=== PATIENT | male | born 1970 | race Caucasian/White ===

== ENCOUNTER → 2017-03-03 | Outpatient (CLI) | payer BC ==
[~2017-03-03] MED LIST: *BLDWK1; *BLW9; AMBIEN10 PO; AMO500; AMO500 PO; AMOXIL500 PO; AUGXR10 PO; BABY81CH; BUSP15TA; BUSPAR10 PO; BUSPAR15 PO; CIPRO500 PO; CITA20TA4 PO; DEPAKOT500; DOXYCYC100 PO; DRISDOL50 PO; FLONASESPR NASAL; KLONOPIN PO; KLONOPIN05 PO; MOTRIN800 PO; RHINOAEROS 2 SPRAYS; TEMOVATEOI TOPICAL; THERGRAN; TOPAMAX100; TOPAMAX100 PO; TOPAMAX200 PO; TOPI100T; TOPI200T; TOPI200T PO; TRAZ10TA PO; TRIAMCIN; TRIAMCINOLONE 0.5% TOP; TUSSIONEX PO; VICODIN PO; XANAX0.25 PO; XANAX0.5 PO; [UNRECOGNIZED DRUG - CODE] TOPICAL; [UNRECOGNIZED DRUG - OTHER] TOP; [UNRECOGNIZED DRUG - OTHER] TOPICAL
[2017-03-03 14:24] LABS: BASO % 0.7 % (0.0-1.0); EOS # 0.4 10^3/uL (0.0-0.50); EOS % 6.5 % (0.0-3.0); IMMATURE GRANULOCYTE % 0.9 % (0-0); LYMPH # 0.9 10^3/uL (1.5-4.5); LYMPH % 16.5 % (24.0-44.0); MEAN CORPUSCULAR HEMOGLOBIN 30.6 pg (27.0-33.0); MEAN CORPUSCULAR HGB CONC 33.1 g/dl (32.0-36.5); MEAN CORPUSCULAR VOLUME 92.4 fl (80.0-96.0); MONO # 0.5 10^3/uL (0.0-0.8); MONO % 9.7 % (0.0-5.0); NEUTROPHILS # 3.7 10^3/uL (1.8-7.7); NEUTROPHILS % 65.7 % (36.0-66.0); PLATELET COUNT, AUTOMATED 110 10^3/uL (150-450); WHITE BLOOD COUNT 5.6 10^3/uL (4.0-10.0)
[2017-03-03 15:50] LABS: ALBUMIN 3.8 GM/DL (3.2-5.2); ALBUMIN/GLOBULIN RATIO 1.31 (1.00-1.93); ALKALINE PHOSPHATASE 67 U/L (45-117); ALT/SGPT 32 U/L (12-78); ANION GAP 4 MEQ/L (8-16); AST/SGOT 13 U/L (15-37); BILIRUBIN,TOTAL 0.4 MG/DL (0.2-1.0); BLOOD UREA NITROGEN 20 MG/DL (7-18); CALCIUM LEVEL 8.2 MG/DL (8.5-10.1); CARBON DIOXIDE LEVEL 24 MEQ/L (21-32); CHLORIDE LEVEL 115 MEQ/L (98-107); CHOLESTEROL LEVEL 90 MG/DL (<200); CREATININE FOR GFR 1.18 MG/DL (0.70-1.30); FREE T4 0.81 NG/DL (0.76-1.46); GLOMERULAR FILTRATION RATE > 60.0 (>60); GLUCOSE, FASTING 87 MG/DL (70-105); POTASSIUM SERUM 4.6 MEQ/L (3.5-5.1); SODIUM LEVEL 143 MEQ/L (136-145); TOTAL PROTEIN 6.7 GM/DL (6.4-8.2); TRIGLYCERIDES LEVEL 77 MG/DL (<150)
== END ==
LOC: M WUC 09:35
PROVIDERS: ATTEND Nurse Practitioner Adult Health
DX: Z79.899 Other long term (current) drug therapy (principal); G40.909 Epilepsy, unspecified, not intractable, without status epilepticus; R19.5 Other fecal abnormalities; R60.0 Localized edema; L40.9 Psoriasis, unspecified; M25.571 Pain in right ankle and joints of right foot; E55.9 Vitamin D deficiency, unspecified

== ENCOUNTER 2017-08-02 18:27 | Inpatient (IN) | payer BC, OTHER ==
[2017-08-02] MEDS: ONDANSETRON 4MG/2ML VIAL (J2405) IV (19:40)
[2017-08-02] MEDS: MORPHINE 4 MG/ML 1ML VIAL (J2270) IV ×2 (19:41→23:37)
[2017-08-02] MEDS: PIPERACILLIN/TAZOBACTAM SOD 3.375 GM in APPROPRIATE DILUENT 1 EA IV (19:51)
[2017-08-02] MEDS: NS 2,000 ML IV (19:51)
[2017-08-02] MEDS: ACETAMINOPHEN 650 MG SUPP PR (19:51)
[2017-08-02 19:52] LABS: BASO # 0.1 10^3/uL (0.0-0.2); BASO % 0.4 % (0.0-1.0); EOS # 0.1 10^3/uL (0.0-0.50); EOS % 0.3 % (0.0-3.0); HEMATOCRIT 43.5 % (42.0-52.0); HEMOGLOBIN 14.7 g/dl (14.0-18.0); IMMATURE GRANULOCYTE % 0.6 % (0-3.0); LYMPH # 0.5 10^3/uL (1.5-4.5); LYMPH % 2.7 % (24.0-44.0); MEAN CORPUSCULAR HEMOGLOBIN 31.2 pg (27.0-33.0); MEAN CORPUSCULAR HGB CONC 33.8 g/dl (32.0-36.5); MEAN CORPUSCULAR VOLUME 92.4 fl (80.0-96.0); MONO # 1.1 10^3/uL (0.0-0.8); MONO % 6.5 % (0.0-5.0); NEUTROPHILS # 15.1 10^3/uL (1.8-7.7); NEUTROPHILS % 89.5 % (36.0-66.0); PLATELET COUNT, AUTOMATED 137 10^3/uL (150-450); RED BLOOD COUNT 4.71 10^6/uL (4.30-6.10); WHITE BLOOD COUNT 16.8 10^3/uL (4.0-10.0)
[2017-08-02 19:55] LABS: KETONE, URINE AUTO RFX TRACE mg/dL (NEGATIVE); LEUKOCYTE ESTERASE UR AUTO RFX NEGATIVE (NEGATIVE); MUCUS, URINE RFX SMALL (NEGATIVE); NITRITE, URINE AUTO RFX NEGATIVE (NEGATIVE); RBC, URINE AUTO RFX 3 /HPF (0-3); SPECIFIC GRAVITY UR AUTO RFX 1.013 (1.002-1.035); SQUAM EPITHELIAL CELL UR AURFX 0 /HPF (0-6); WBC, URINE AUTO RFX 5 /HPF (0-3)
[2017-08-02 20:24] LABS: ALBUMIN 4.2 GM/DL (3.2-5.2); ALBUMIN/GLOBULIN RATIO 1.27 (1.00-1.93); ALKALINE PHOSPHATASE 78 U/L (45-117); ALT/SGPT 31 U/L (12-78); AMYLASE 38 U/L (25-115); ANION GAP 12 MEQ/L (8-16); AST/SGOT 18 U/L (7-37); BILIRUBIN,DIRECT 0.3 MG/DL (0.0-0.2); BILIRUBIN,TOTAL 0.8 MG/DL (0.2-1.0); BLOOD UREA NITROGEN 24 MG/DL (7-18); CALCIUM LEVEL 8.4 MG/DL (8.5-10.1); CARBON DIOXIDE LEVEL 20 MEQ/L (21-32); CHLORIDE LEVEL 110 MEQ/L (98-107); CREATININE FOR GFR 2.05 MG/DL (0.70-1.30); GLOMERULAR FILTRATION RATE 37.1 (>60); GLUCOSE, FASTING 96 MG/DL (70-100); LIPASE 250 U/L (73-393); POTASSIUM SERUM 3.7 MEQ/L (3.5-5.1); SODIUM LEVEL 142 MEQ/L (136-145); TOTAL PROTEIN 7.5 GM/DL (6.4-8.2)
[2017-08-02 20:26] LABS: LACTIC ACID SEPSIS PROTOCOL 1.2 MMOL/L (0.4-2.0)
[2017-08-02] MEDS ORDERED: metroNIDAZOLE 500 MG in APPROPRIATE DILUENT 1 EA IV (23:00)
[2017-08-02] MEDS ORDERED: ONDANSETRON 4MG/2ML VIAL (J2405) IV (23:00)
[2017-08-02 23:18] LABS: C REACTIVE PROTEIN QUANTITATIV 6.05 MG/DL (0.00-0.30)
[2017-08-02] MEDS: CIPROFLOXACIN 400 MG in APPROPRIATE DILUENT 1 EA IV (23:18)
[2017-08-02] MEDS: PANTOPRAZOLE 40MG INJ (PROTONIX) (C9113) IV (23:35)
[2017-08-02] MEDS: LACTOBACILLUS ACIDOPHILUS CAP (BACID) PO (23:36)
[2017-08-02] MEDS: TOPIRAMATE (TopAMAX) 100 MG TAB PO (23:36)
[2017-08-03] MEDS: LR 1,000 ML IV ×4 (01:07→18:45)
[2017-08-03] MEDS: metroNIDAZOLE 500 MG in APPROPRIATE DILUENT 1 EA IV ×3 (03:00→18:43)
[2017-08-03 03:16] LABS: OSMOLALITY URINE 530 MOSM/KG (500-800)
[2017-08-03 03:20] LABS: CHLORIDE,RANDOM URINE 85 MEQ/L; POTASSIUM RANDOM URINE 37.3 MEQ/L; SODIUM,RANDOM URINE 73 MEQ/L; TOTAL PROTEIN,RANDOM URINE 28.3 MG/DL (0.0-12.0)
[2017-08-03] MEDS: HEPARIN SOD (PORCINE) 5000 UNITS/ML VIAL SC ×3 (06:21→20:22)
[2017-08-03] MEDS: MORPHINE 4 MG/ML 1ML VIAL (J2270) IV (06:22)
[2017-08-03 06:34] LABS: HEMATOCRIT 36.8 % (42.0-52.0); MEAN CORPUSCULAR HEMOGLOBIN 31.2 pg (27.0-33.0); MEAN CORPUSCULAR HGB CONC 33.7 g/dl (32.0-36.5); MEAN CORPUSCULAR VOLUME 92.5 fl (80.0-96.0); PLATELET COUNT, AUTOMATED 118 10^3/uL (150-450); RED BLOOD COUNT 3.98 10^6/uL (4.30-6.10); RED CELL DISTRIBUTION WIDTH 12.3 % (11.5-14.5); WHITE BLOOD COUNT 11.7 10^3/uL (4.0-10.0)
[2017-08-03 06:36] LABS: HEMOGLOBIN 12.4 g/dl (14.0-18.0)
[2017-08-03 06:51] LABS: ALBUMIN 3.1 GM/DL (3.2-5.2); ALBUMIN/GLOBULIN RATIO 0.94 (1.00-1.93); ALKALINE PHOSPHATASE 59 U/L (45-117); ALT/SGPT 25 U/L (12-78); ANION GAP 7 MEQ/L (8-16); AST/SGOT 12 U/L (7-37); BILIRUBIN,TOTAL 1.1 MG/DL (0.2-1.0); BLOOD UREA NITROGEN 21 MG/DL (7-18); CALCIUM LEVEL 7.9 MG/DL (8.5-10.1); CARBON DIOXIDE LEVEL 20 MEQ/L (21-32); CHLORIDE LEVEL 115 MEQ/L (98-107); GLOMERULAR FILTRATION RATE 43.1 (>60); GLUCOSE, FASTING 103 MG/DL (70-100); MAGNESIUM LEVEL 1.7 MG/DL (1.8-2.4); POTASSIUM SERUM 3.5 MEQ/L (3.5-5.1); SODIUM LEVEL 142 MEQ/L (136-145); TOTAL PROTEIN 6.4 GM/DL (6.4-8.2)
[2017-08-03 06:53] LABS: LACTIC ACID SEPSIS PROTOCOL 0.9 MMOL/L (0.4-2.0)
[2017-08-03] MEDS: MULTIVITAMINS/MINERALS THERAP 1 TAB PO (07:29)
[2017-08-03] MEDS: MAG SULF 1GM/100ML (MAG RUN) 1 GM in APPROPRIATE DILUENT 1 EA IV (07:54)
[2017-08-03] MEDS: LACTOBACILLUS ACIDOPHILUS CAP (BACID) PO ×3 (07:54→20:21)
[2017-08-03] MEDS: TOPIRAMATE (TopAMAX) 100 MG TAB PO ×2 (07:55→20:21)
[2017-08-03] MEDS: ACETAMINOPHEN TAB 650MG DOSE (2X325MG) PO ×2 (07:55→18:44)
[2017-08-03] MEDS: CIPROFLOXACIN 400 MG in APPROPRIATE DILUENT 1 EA IV (13:27)
[2017-08-03] MEDS ORDERED: PERCOCET 5MG/325MG TAB PO (18:00)
[2017-08-03] MEDS: PANTOPRAZOLE 40MG INJ (PROTONIX) (C9113) IV (20:22)
[2017-08-04] MEDS: CIPROFLOXACIN 400 MG in APPROPRIATE DILUENT 1 EA IV ×2 (00:52→13:04)
[2017-08-04] MEDS: metroNIDAZOLE 500 MG in APPROPRIATE DILUENT 1 EA IV ×3 (02:16→17:19)
[2017-08-04] MEDS: LR 1,000 ML IV ×3 (04:28→15:00)
[2017-08-04] MEDS: HEPARIN SOD (PORCINE) 5000 UNITS/ML VIAL SC ×3 (06:04→20:30)
[2017-08-04 06:23] LABS: HEMATOCRIT 32.9 % (42.0-52.0); HEMOGLOBIN 11.3 g/dl (14.0-18.0); MEAN CORPUSCULAR HEMOGLOBIN 31.7 pg (27.0-33.0); MEAN CORPUSCULAR HGB CONC 34.3 g/dl (32.0-36.5); MEAN CORPUSCULAR VOLUME 92.2 fl (80.0-96.0); PLATELET COUNT, AUTOMATED 105 10^3/uL (150-450); RED BLOOD COUNT 3.57 10^6/uL (4.30-6.10); RED CELL DISTRIBUTION WIDTH 12.2 % (11.5-14.5); WHITE BLOOD COUNT 8.4 10^3/uL (4.0-10.0)
[2017-08-04 06:40] LABS: ALBUMIN 2.7 GM/DL (3.2-5.2); ALBUMIN/GLOBULIN RATIO 0.82 (1.00-1.93); ALKALINE PHOSPHATASE 47 U/L (45-117); ALT/SGPT 17 U/L (12-78); ANION GAP 6 MEQ/L (8-16); AST/SGOT 7 U/L (7-37); BILIRUBIN,TOTAL 0.4 MG/DL (0.2-1.0); BLOOD UREA NITROGEN 15 MG/DL (7-18); CALCIUM LEVEL 8.1 MG/DL (8.5-10.1); CARBON DIOXIDE LEVEL 24 MEQ/L (21-32); CHLORIDE LEVEL 114 MEQ/L (98-107); CREATININE FOR GFR 1.39 MG/DL (0.70-1.30); GLOMERULAR FILTRATION RATE 58.1 (>60); GLUCOSE, FASTING 119 MG/DL (70-100); MAGNESIUM LEVEL 2.1 MG/DL (1.8-2.4); POTASSIUM SERUM 3.4 MEQ/L (3.5-5.1); SODIUM LEVEL 144 MEQ/L (136-145)
[2017-08-04] MEDS: MULTIVITAMINS/MINERALS THERAP 1 TAB PO (09:36)
[2017-08-04] MEDS: LACTOBACILLUS ACIDOPHILUS CAP (BACID) PO ×3 (09:36→20:31)
[2017-08-04] MEDS: TOPIRAMATE (TopAMAX) 100 MG TAB PO ×2 (09:36→20:31)
[2017-08-04] MEDS: TAMSULOSIN 0.4 MG CAP PO (09:36)
[2017-08-04] MEDS: POTASSIUM CHLORIDE 10 MEQ SR TABLET PO (13:03)
[2017-08-04] MEDS: EUCERIN 120GM CREAM TOP (20:30)
[2017-08-04] MEDS: PANTOPRAZOLE 40MG INJ (PROTONIX) (C9113) IV (20:30)
[2017-08-05] MEDS: LR 1,000 ML IV ×3 (00:28→11:00)
[2017-08-05] MEDS: CIPROFLOXACIN 400 MG in APPROPRIATE DILUENT 1 EA IV ×2 (00:28→11:49)
[2017-08-05] MEDS: metroNIDAZOLE 500 MG in APPROPRIATE DILUENT 1 EA IV ×2 (02:06→10:00)
[2017-08-05] MEDS: HEPARIN SOD (PORCINE) 5000 UNITS/ML VIAL SC (05:32)
[2017-08-05 06:04] LABS: HEMATOCRIT 33.3 % (42.0-52.0); HEMOGLOBIN 11.2 g/dl (13.5-17.5); MEAN CORPUSCULAR HEMOGLOBIN 31.3 pg (27.0-33.0); MEAN CORPUSCULAR HGB CONC 33.6 g/dl (32.0-36.5); PLATELET COUNT, AUTOMATED 105 10^3/uL (150-450); RED BLOOD COUNT 3.58 10^6/uL (4.30-6.10); RED CELL DISTRIBUTION WIDTH 12.1 % (11.5-14.5); WHITE BLOOD COUNT 7.1 10^3/uL (4.0-10.0)
[2017-08-05 06:28] LABS: ALBUMIN 2.7 GM/DL (3.2-5.2); ALBUMIN/GLOBULIN RATIO 0.84 (1.00-1.93); ALKALINE PHOSPHATASE 49 U/L (45-117); ALT/SGPT 25 U/L (12-78); ANION GAP 3 MEQ/L (8-16); AST/SGOT 16 U/L (7-37); BILIRUBIN,TOTAL 0.3 MG/DL (0.2-1.0); BLOOD UREA NITROGEN 15 MG/DL (7-18); CALCIUM LEVEL 8.1 MG/DL (8.5-10.1); CARBON DIOXIDE LEVEL 23 MEQ/L (21-32); CHLORIDE LEVEL 118 MEQ/L (98-107); GLOMERULAR FILTRATION RATE > 60.0 (>60); GLUCOSE, FASTING 94 MG/DL (70-100); MAGNESIUM LEVEL 1.7 MG/DL (1.8-2.4); POTASSIUM SERUM 3.6 MEQ/L (3.5-5.1); SODIUM LEVEL 144 MEQ/L (136-145); TOTAL PROTEIN 5.9 GM/DL (6.4-8.2)
[2017-08-05] MEDS: MULTIVITAMINS/MINERALS THERAP 1 TAB PO (08:34)
[2017-08-05] MEDS: MAGNESIUM OXIDE 400 MG TAB (MAG-OX) PO (08:34)
[2017-08-05] MEDS: LACTOBACILLUS ACIDOPHILUS CAP (BACID) PO (08:34)
[2017-08-05] MEDS: TAMSULOSIN 0.4 MG CAP PO (08:34)
[2017-08-05] MEDS: TOPIRAMATE (TopAMAX) 100 MG TAB PO (08:35)
[2017-08-05] MEDS: PERCOCET 5MG/325MG TAB PO (08:36)
[2017-08-05] MEDS: EUCERIN 120GM CREAM TOP (08:36)
== END 2017-08-05 13:07 | disposition home or self-care (01) | DRG 249 ==
LOC: M MSPAV 08-03 10:57 → M ED 18:27 → M ED INP 22:56
DX: K52.9 Noninfective gastroenteritis and colitis, unspecified (principal); N17.9 Acute kidney failure, unspecified; N13.2 Hydronephrosis with renal and ureteral calculous obstruction; G40.909 Epilepsy, unspecified, not intractable, without status epilepticus; F41.9 Anxiety disorder, unspecified; F32.9 Major depressive disorder, single episode, unspecified; G47.33 Obstructive sleep apnea (adult) (pediatric); Z87.442 Personal history of urinary calculi; Z79.899 Other long term (current) drug therapy; E86.0 Dehydration; D72.829 Elevated white blood cell count, unspecified; E87.6 Hypokalemia

== ENCOUNTER 2017-11-02 12:50 | Emergency (ER) | payer OTHER, BC ==
[2017-11-02] MEDS: KETOROLAC 60 MG/2 ML VIAL (J1885) IM (14:43)
== END 2017-11-02 15:22 | disposition home or self-care (01) ==
LOC: M ED 12:50
DX: S83.8X1A Sprain of other specified parts of right knee, initial encounter (principal); W01.0XXA Fall on same level from slipping, tripping and stumbling without subsequent striking against object, initial encounter; Y92.59 Other trade areas as the place of occurrence of the external cause; Y99.0 Civilian activity done for income or pay; G40.909 Epilepsy, unspecified, not intractable, without status epilepticus; G47.33 Obstructive sleep apnea (adult) (pediatric); F33.9 Major depressive disorder, recurrent, unspecified; Z98.890 Other specified postprocedural states
CPT/HCPCS: J1885

== ENCOUNTER → 2018-01-20 | Outpatient (REF) | payer BC | LOC: M LAB REF 09:46 | DX: L02.416 Cutaneous abscess of left lower limb (principal) | CPT/HCPCS: 87186 ==

== ENCOUNTER 2018-05-19 16:19 | Emergency (ER) | payer OTHER, BC ==
[~2018-05-19] VITALS: Ht 182.9 cm; Wt 115.9 kg
[~2018-05-19 16:19] MED LIST changes: +CENTTAB PO; +CIPR-249 PO; +FLOM0.4C39 PO; +NAPR-50 PO; +OXYC1TAB23 PO; +VITMTA PO
[2018-05-19] MEDS ORDERED: PRED10TA2 PO (16:37)
[2018-05-19] MEDS ORDERED: DOXY-346 PO (16:37)
[2018-05-19] MEDS ORDERED: NS 1,000 ML IV SCH (16:51)
[2018-05-19] MEDS ORDERED: MORPHINE 2 MG/ML 1ML SYRINGE (J2270) IV PRN (17:00)
[2018-05-19] MEDS ORDERED: ONDANSETRON 4MG/2ML VIAL (J2405) IV ONE (17:00)
[2018-05-19] MEDS ORDERED: ISOVUE-370 76% 100ML VIAL (Q9967) As Ordered ONE (17:00)
[2018-05-19 17:07] LABS: BASO # 0.1 10^3/uL (0.0-0.2); BASO % 0.6 % (0.0-1.0); EOS # 0.1 10^3/uL (0.0-0.50); HEMATOCRIT 42.4 % (42.0-52.0); HEMOGLOBIN 14.6 g/dl (13.5-17.5); LYMPH % 11.7 % (24.0-44.0); MEAN CORPUSCULAR HGB CONC 34.4 g/dl (32.0-36.5); MONO # 0.6 10^3/uL (0.0-0.8); MONO % 7.2 % (0.0-5.0); NEUTROPHILS # 6.5 10^3/uL (1.8-7.7); NEUTROPHILS % 78.7 % (36.0-66.0); PLATELET COUNT, AUTOMATED 146 10^3/uL (150-450); RED BLOOD COUNT 4.71 10^6/uL (4.30-6.10); WHITE BLOOD COUNT 8.3 10^3/uL (4.0-10.0)
[2018-05-19 17:19] LABS: ALBUMIN 3.5 GM/DL (3.2-5.2); ALT/SGPT 27 U/L (12-78); BILIRUBIN,DIRECT < 0.1 MG/DL (0.0-0.2); BILIRUBIN,TOTAL 0.2 MG/DL (0.2-1.0); BLOOD UREA NITROGEN 14 MG/DL (7-18); CALCIUM LEVEL 8.1 MG/DL (8.5-10.1); CARBON DIOXIDE LEVEL 23 MEQ/L (21-32); CHLORIDE LEVEL 114 MEQ/L (98-107); CPK CREATINE PHOSPHOKINASE 111 U/L (39-308); CREATININE FOR GFR 1.28 MG/DL (0.70-1.30); GLOMERULAR FILTRATION RATE > 60.0 (>60); GLUCOSE, FASTING 128 MG/DL (70-100); LIPASE 270 U/L (73-393); POTASSIUM SERUM 3.3 MEQ/L (3.5-5.1); SODIUM LEVEL 144 MEQ/L (136-145); TROPONIN I < 0.02 NG/ML (< 0.10)
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
[2018-05-19 17:37] LABS: INR 1.05; PROTHROMBIN TIME 13.8 SECONDS (12.1-14.4)
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
[2018-05-19] MEDS ORDERED: ZOFR4TAB16 PO (18:05)
[2018-05-19] MEDS ORDERED: NORCOTAB PO (18:05)
[2018-05-19 18:19] VITALS: BP 124/68
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
--- NOTE | 2018-05-20 07:59 | ECGEPIP ---
Stationary ECG Study [facility] - ED Test Date: 2018-05-19 Pat Name: FAUSTO COSME Department: Room: - Gender: M Plumber Helper: emmy : 1970 Requested By: JUAN ALBERTO EDMOND Order Number: [id number] Reading MD: Juliann Stanley Measurements Intervals [place] Rate: 89 P: 58 [place]: 168 QRS: 92 QRSD: 109 T: 62 QT: 327 QTc: 398 Interpretive Statements SINUS RHYTHM INDETERMINATE AXIS PATTERN CONSISTENT WITH PULMONARY DISEASE DECREASED RATE 08/02/17 Electronically Signed On 05-20-2018 7:58:54 EST by Juliann Stanley
== END 2018-05-19 18:36 | disposition home or self-care (01) ==
LOC: M ED 16:19 → EDBD 16:19 → M ED 18:36
DX: N20.0 Calculus of kidney (principal); S16.1XXA Strain of muscle, fascia and tendon at neck level, initial encounter; T14.8XXA Other injury of unspecified body region, initial encounter; V49.49XA Driver injured in collision with other motor vehicles in traffic accident, initial encounter; Y92.410 Unspecified street and highway as the place of occurrence of the external cause; Z79.899 Other long term (current) drug therapy
CPT/HCPCS: 36415; 70450; 71260; 72125; 74177; 80048; 80076; 82550; 82553; 83690; 84484; 85025; 85610; 86850; 86900; 86901; 93005; 93041; 96374; 96375; 99285; J2270; J2405; Q9967

== ENCOUNTER → 2019-08-29 | Outpatient (REF) | payer BC ==
[~2019-08-29] MED LIST changes: -CITA20TA4 PO; +CITA20TA6 PO; +DOXY-346 PO; +HYDR-3715 PO; -NAPR-50 PO; +NAPR-837 PO; +PRED10TA2 PO; -TRAZ10TA PO; +TRAZ1TAB12 PO; +ZOFR4TAB16 PO
[2019-08-29 18:04] LABS: HIV 1&2 SCREEN CENTAUR NEGATIVE (NEGATIVE)
== END ==
LOC: M SFHCDERM 13:34 → M SFHCADAM 13:35
PROVIDERS: ATTEND Dermatology
DX: L40.4 Guttate psoriasis (principal)

== ENCOUNTER 2019-12-09 18:58 | Emergency (ER) | payer BC ==
[2019-12-09] MEDS ORDERED: ISOVUE-370 76% 100ML VIAL As Ordered ONE (21:53)
[2020-01-24 13:20] LABS: INR 1.03; PROTHROMBIN TIME 13.7 SECONDS (11.8-14.0)
[2020-01-24 14:03] LABS: APPEARANCE, URINE CLEAR (CLEAR); BACTERIA, URINE AUTO NEGATIVE (NEGATIVE); BILIRUBIN, URINE AUTO NEGATIVE (NEGATIVE); BLOOD, URINE BLOOD 2+ (NEGATIVE); COLOR, URINE YELLOW (YELLOW); GLUCOSE, URINE (UA) AUTO NEGATIVE (NEGATIVE); KETONE, URINE AUTO NEGATIVE (NEGATIVE); LEUKOCYTE ESTERASE, URINE AUTO NEGATIVE (NEGATIVE); MUCUS, URINE SMALL (NEGATIVE); NITRITE, URINE AUTO NEGATIVE (NEGATIVE); PROTEIN, URINE AUTO NEGATIVE (NEGATIVE); RBC, URINE AUTO 7 /HPF (0-3); SPECIFIC GRAVITY URINE AUTO 1.019 (1.002-1.035); SQUAMOUS EPITHELIAL CELL UR AU 0 /HPF (0-6); UROBILINOGEN, URINE AUTO 0.2 mg/dL (0.0-2.0); WBC, URINE AUTO 2 /HPF (0-3)
[2020-01-24 17:00] LABS: HEMATOCRIT 42.8 % (42.0-52.0); HEMOGLOBIN 14.6 g/dl (13.5-17.5); MEAN CORPUSCULAR HEMOGLOBIN 31.1 pg (27.0-33.0); MEAN CORPUSCULAR HGB CONC 34.1 g/dl (32.0-36.5); MEAN CORPUSCULAR VOLUME 91.3 fl (80.0-96.0); PLATELET COUNT, AUTOMATED 120 10^3/uL (150-450); RED BLOOD COUNT 4.69 10^6/uL (4.30-6.10); WHITE BLOOD COUNT 8.3 10^3/uL (4.0-10.0)
[2020-02-14] MEDS ORDERED: METO1TAB7 PO (14:09)
[2020-02-14] MEDS ORDERED: TOPA200T7 PO (14:09)
[2020-02-14] MEDS ORDERED: TALT80IN7 SQ (14:16)
[2020-02-20 15:46] LABS: ALBUMIN 3.8 GM/DL (3.2-5.2); AMPHETAMINES LEVEL URINE NEGATIVE (NEGATIVE); BARBITURATES URINE NEGATIVE (NEGATIVE); BENZODIAZEPINES URINE NEGATIVE (NEGATIVE); BILIRUBIN,TOTAL 0.7 MG/DL (0.2-1.0); CALCIUM LEVEL 8.5 MG/DL (8.5-10.1); CANNABINOIDS URINE NEGATIVE (NEGATIVE); COCAINE METABOLITE URINE NEGATIVE (NEGATIVE); CREATININE FOR GFR 1.37 MG/DL (0.70-1.30); GLOMERULAR FILTRATION RATE 58.6 (>56); METHADONE URINE NEGATIVE (NEGATIVE); OPIATES URINE NEGATIVE (NEGATIVE); PHENCYCLIDINE URINE NEGATIVE (NEGATIVE); POTASSIUM SERUM 3.5 MEQ/L (3.5-5.1); TOTAL PROTEIN 6.5 GM/DL (6.4-8.2)
== END 2019-12-10 01:10 | disposition home or self-care (01) ==
LOC: M ED 18:58
DX: N20.1 Calculus of ureter (principal); I51.7 Cardiomegaly; R53.83 Other fatigue; R07.9 Chest pain, unspecified; Z79.899 Other long term (current) drug therapy
CPT/HCPCS: 71046; 71260; 74176; 80053; 80307; 81001; 85027; 85610; 96360; 99284; Q9967

== ENCOUNTER → 2020-02-22 | Outpatient (CLI) | payer BC ==
[~2020-02-22] MED LIST changes: +METO1TAB7 PO; +TALT80IN7 SQ; +TOPA200T7 PO
== END ==
LOC: M LABSMTC 10:03
PROVIDERS: ATTEND Anesthesiology
DX: Z01.812 Encounter for preprocedural laboratory examination (principal); Z20.828 Contact with and (suspected) exposure to other viral communicable diseases
CPT/HCPCS: C9803; U0003

== ENCOUNTER 2020-02-27 06:22 | Day surgery (SDC) | payer BC ==
[~2020-02-27] VITALS: Ht 182.9 cm; Wt 135.5 kg
[~2020-02-27 06:22] MED LIST changes: +LR 1,000 ML IV ONE; +ceFAZolin SOD 1 GM in D5W MINI-BAG PLUS 50 ML IV ONE; +ceFAZolin SOD 2 GM in IV 1 EA IV ONE
[2020-02-27] MEDS ORDERED: fentaNYL 100 MCG/2 ML INJECTION (J3010) As Ordered ONE (07:14)
[2020-02-27] MEDS ORDERED: CONRAY-60 60% 50ML VIAL (Q9961) As Ordered ONE (07:14)
[2020-02-27] MEDS ORDERED: propofoL 200 MG/20 ML VIAL As Ordered ONE ×2 (07:14→07:46)
[2020-02-27] MEDS ORDERED: MIDAZOLAM INJ 2MG/2ML VIAL (J2250 PER 1MG) As Ordered ONE (07:14)
[2020-02-27] MEDS ORDERED: dexameTHASONE 4 MG/ML 1ML VIAL (J1100 PER 1MG) As Ordered ONE (07:15)
[2020-02-27] MEDS ORDERED: LIDOCAINE 2% 100MG/5ML SDV (FOR ANES.) As Ordered ONE (07:15)
[2020-02-27] MEDS ORDERED: ONDANSETRON 4MG/2ML VIAL As Ordered ONE (07:15)
[2020-02-27] MEDS ORDERED: ACETAMINOPHEN 1000MG 100ML IV BTL (OFIRMEV) (J0131 PER 10MG) As Ordered ONE (07:46)
[2020-02-27] MEDS ORDERED: ONDANSETRON 4MG/2ML VIAL IV PRN (08:45)
[2020-02-27] MEDS ORDERED: LR 1,000 ML IV SCH (08:45)
[2020-02-27] MEDS ORDERED: oxyCODONE 5MG TAB PO PRN (08:45)
[2020-02-27] MEDS ORDERED: fentaNYL 100 MCG/2 ML INJECTION (J3010) IV PRN (08:45)
[2020-02-27] MEDS ORDERED: PERCOCET 5MG/325MG TAB PO PRN (08:45)
--- NOTE | 2020-02-27 08:58 | REP ---
INDICATION: RIGHT STENT PLACEMENT. COMPARISON: None. TECHNIQUE: Intraoperative fluoroscopic imaging using portable technique. FINDINGS: Multiple images demonstrate right-sided hydroureteronephrosis with satisfactory ureteral stent placement. Total fluoroscopic time 11 seconds. IMPRESSION: Satisfactory right ureteral stent placement <Electronically signed by Barrington Wallace > 02/27/20 0816
[2020-02-27 10:10] VITALS: BP 129/76
--- NOTE | 2020-02-27 14:05 | RO ---
DATE OF OPERATION: 02/27/2020 PREOPERATIVE DIAGNOSIS: Right ureteral stone. POSTOPERATIVE DIAGNOSIS: Right ureteral stone. PROCEDURES: 1. Cystoscopy. 2. Right ureteroscopy with laser lithotripsy and basket extraction of stones. 3. Right retrograde pyelogram with intraoperative interpretation of images. 4. Right ureteral stent placement. SURGEON: Lawrence Burns MD REAL ESTATE CLOSER: None. ANESTHESIA: General. OPERATIVE INDICATIONS: This is a 49-year-old male who was found to have obstructing 6 mm mid right ureteral stone on CT scan approximately 2-1/2 months ago. Due to job requirements he was not able to be brought to the operating room until today. We brought him to the operating room today to remove his stone. DESCRIPTION OF PROCEDURE: The patient was brought to the operating room and general anesthesia was induced. Prophylactic antibiotics were infused. He was placed in the dorsal lithotomy position and prepped and draped in usual sterile fashion. A rigid cystoscope was inserted into the urethral meatus and advanced into the bladder. Once we were inside the bladder of note the stone could readily be seen just inside the right ureteral orifice. A guidewire was advanced up the right collecting system. I went up the right collecting system with short semi-rigid ureteroscope and the stone was right at the ureterovesical junction. The stone was then fragmented into smaller pieces using a 272 micron laser fiber and then all the fragments were removed using basket. Once that was done a ureteral access sheath was advanced into the right collecting system. I went up the access sheath with a flexible ureteroscope and examined the right kidney thoroughly. Of note it was moderately to severely hydronephrotic. There were a few tiny stone fragments in the kidney. A retrograde pyelogram was performed and was notable for severe right hydronephrosis with no extravasation. I then withdrew the ureteroscope along with access sheath and no additional stones were seen inside the ureter. I then utilized the guidewire to advance a 6-Sinhala x 22-32 cm JJ ureteral stent into the right collecting system. The wire was removed and there were adequate curls of the stent in the right renal pelvis and in the bladder. The bladder was emptied of all fluids and this marked the conclusion of the procedure. The patient was then taken out of the dorsal lithotomy position, awakened from anesthesia and transported to recovery room in stable condition. ESTIMATED BLOOD LOSS: 5 mL. COMPLICATIONS: None. SPECIMENS: Kidney stone fragments. PLAN: The patient will follow up in urology clinic in approximately 1-2 weeks for stent removal. HERMAN
--- NOTE | 2020-02-29 08:03 | ECGEPIP ---
[facility] Test Date: 2020-02-27 Pat Name: FAUSTO COSME Department: Room: - Gender: Male Medical Claims Representative: [facility] : 1970 Requested By: AREN Izquierdo Order Number: [id number] Reading MD: Tomy Lau Measurements Intervals [place] Rate: 78 P: 59 [place]: 179 QRS: 110 QRSD: 104 T: 89 QT: 369 QTc: 421 Interpretive Statements Normal sinus rhythm LA conduction disturbance Indeterminate frontal axis with somewhat low voltages, slow precordial R wave p progression and persistent S wave V5 and V6; body habitus versus pulmonary disease No change from 05/19/18 Electronically Signed on 02-29-2020 8:02:55 EDT by Tomy Lau
[2020-03-06 12:08] LABS: CA Oxalate Dihy 60 % (.); Ca Ox Monohydrate 30 % (.); Size 3x5 mm (.)
== END 2020-02-27 10:37 | disposition home or self-care (01) ==
LOC: M SDC 06:22
PROVIDERS: ATTEND Urology
DX: N20.1 Calculus of ureter (principal); I10 Essential (primary) hypertension; G47.33 Obstructive sleep apnea (adult) (pediatric); L40.9 Psoriasis, unspecified; F41.9 Anxiety disorder, unspecified; Z79.899 Other long term (current) drug therapy
CPT/HCPCS: 52356; 74420; 82365; 88300; 93005; C1769; C1894; C2617; J0131; J0690; J1100; J2250; J2405; J3010; Q9961

== ENCOUNTER → 2020-08-05 | Outpatient (CLI) | payer BC ==
[~2020-08-05] MED LIST changes: -LR 1,000 ML IV ONE; -ceFAZolin SOD 1 GM in D5W MINI-BAG PLUS 50 ML IV ONE; -ceFAZolin SOD 2 GM in IV 1 EA IV ONE
== END ==
LOC: M WUC 15:03
PROVIDERS: ATTEND Dermatology
DX: L40.9 Psoriasis, unspecified (principal)

== ENCOUNTER → 2021-09-28 | Outpatient (CLI) | payer BC | LOC: M WUC 15:09 | PROVIDERS: ATTEND Nurse Practitioner Family | DX: L40.0 Psoriasis vulgaris (principal) ==

== ENCOUNTER 2022-07-15 09:17 | Inpatient (IN) | payer BC ==
[~2022-07-15] VITALS: Ht 182.9 cm; Wt 133.0 kg
[2022-07-15 10:34] LABS: HEMATOCRIT 43.7 % (42.0-52.0); HEMOGLOBIN 14.8 g/dl (13.5-17.5); MEAN CORPUSCULAR HEMOGLOBIN 31.4 pg (27.0-33.0); MEAN CORPUSCULAR HGB CONC 33.9 g/dl (32.0-36.5); MEAN CORPUSCULAR VOLUME 92.6 fl (80.0-96.0); PLATELET COUNT, AUTOMATED 122 10^3/uL (150-450); RED BLOOD COUNT 4.72 10^6/uL (4.30-6.10); WHITE BLOOD COUNT 22.8 10^3/uL (4.0-10.0)
[2022-07-15 10:54] LABS: ATYPICAL LYMPH 1 % (0-5); LYMPHOCYTES 4 % (16-44); MONOCYTES 5 % (0-5); NEUTROPHILS 84 % (28-66)
[2022-07-15 10:55] LABS: ANISOCYTOSIS 1+; PLATELET ESTIMATE DECREASED (NORMAL)
[2022-07-15 10:57] LABS: CK-MB VALUE MASS < 1.0 NG/ML (<3.6)
[2022-07-15 10:59] LABS: ALBUMIN 3.9 G/DL (3.2-5.2); ALKALINE PHOSPHATASE 59 U/L (46-116); ALT/SGPT 26 U/L (7.0-40); AST/SGOT 22 U/L (<34); BILIRUBIN,DIRECT 0.6 MG/DL (<0.4); BILIRUBIN,TOTAL 1.2 MG/DL (0.3-1.2); BLOOD UREA NITROGEN 24 MG/DL (9-23); CALCIUM LEVEL 8.4 MG/DL (8.5-10.1); CARBON DIOXIDE LEVEL 24 MMOL/L (20-31); CHLORIDE LEVEL 106 MMOL/L (98-107); CREATININE FOR GFR 1.53 MG/DL (0.70-1.30); GLOMERULAR FILTRATION RATE 50.9 (>56); GLUCOSE, FASTING 122 MG/DL (60-100); POTASSIUM SERUM 3.9 MMOL/L (3.5-5.1); SODIUM LEVEL 139 MMOL/L (136-145); TOTAL PROTEIN 6.7 G/DL (5.7-8.2)
[2022-07-15 11:01] LABS: THYROID STIMULATING HORMONE 2.098 uIU/ML (0.55-4.78)
[2022-07-15 11:04] LABS: CPK CREATINE PHOSPHOKINASE 220 U/L (46-171); MB/CK RELATIVE INDEX 0.45 (< OR =4)
[2022-07-15 11:19] LABS: RSV AMPLIFICATION NEGATIVE (NEGATIVE)
[2022-07-15 11:42] LABS: INR 1.24; PROTHROMBIN TIME 15.9 SECONDS (12.5-14.5)
[2022-07-15 12:04] LABS: ERYTHROCYTE SEDIMENTATION RATE 23 mm/hr (0-20)
[2022-07-15] MEDS ORDERED: CEFTAROLINE FOSAMIL 600 MG in D5W MINI-BAG PLUS 50 ML IV ONE (12:15)
[2022-07-15] MEDS ORDERED: NS 1,000 ML IV ONE (13:10)
[2022-07-15] MEDS ORDERED: KETOROLAC 30 MG/ML 1ML VIAL IV ONE (13:15)
[2022-07-15] MEDS ORDERED: LOSA100T45 PO (13:57)
[2022-07-15] MEDS ORDERED: METO1TAB33 PO (13:57)
[2022-07-15] MEDS ORDERED: RISA150S2 SC (13:57)
[2022-07-15] MEDS ORDERED: VENL150C43 PO (13:57)
[2022-07-15] MEDS ORDERED: AUGM0.0534 TOP (13:57)
[2022-07-15] MEDS ORDERED: HOME MED LIST COMPLETE! XX SCH (14:00)
[2022-07-15 15:00] VITALS: BP 124/83
[2022-07-15] MEDS: NS 1,000 ML IV SCH (16:01)
[2022-07-15 20:00] VITALS: BP 161/92
[2022-07-15] MEDS: TOPIRAMATE (TopAMAX) 100 MG TAB PO SCH (20:01)
[2022-07-15] MEDS: ACETAMINOPHEN 500 MG TAB PO PRN (20:02)
[2022-07-15] MEDS ORDERED: ENOXAPARIN 40MG/0.4ML SYRINGE (J1650 PER 10MG) SC SCH (21:00)
[2022-07-15 21:48] VITALS: BP 121/68
[2022-07-16] MEDS: CEFTAROLINE FOSAMIL 600 MG in D5W MINI-BAG PLUS 50 ML IV SCH ×2 (00:20→11:27)
[2022-07-16] MEDS: NS 1,000 ML IV SCH ×3 (02:58→22:43)
[2022-07-16 05:52] VITALS: BP 151/78
[2022-07-16 06:16] LABS: HEMOGLOBIN 13.2 g/dl (13.5-17.5); MEAN CORPUSCULAR HEMOGLOBIN 31.1 pg (27.0-33.0); MEAN CORPUSCULAR VOLUME 94.1 fl (80.0-96.0); RED BLOOD COUNT 4.25 10^6/uL (4.30-6.10); WHITE BLOOD COUNT 13.4 10^3/uL (4.0-10.0)
[2022-07-16 06:21] LABS: PLATELET COUNT, AUTOMATED 88 10^3/uL (150-450)
[2022-07-16 06:30] LABS: BLOOD UREA NITROGEN 27 MG/DL (9-23); CALCIUM LEVEL 7.9 MG/DL (8.5-10.1); CARBON DIOXIDE LEVEL 25 MMOL/L (20-31); CHLORIDE LEVEL 108 MMOL/L (98-107); GLOMERULAR FILTRATION RATE > 60.0 (>56); GLUCOSE, FASTING 115 MG/DL (60-100); POTASSIUM SERUM 3.7 MMOL/L (3.5-5.1); SODIUM LEVEL 140 MMOL/L (136-145)
[2022-07-16 07:08] LABS: LYMPHOCYTES 4 % (16-44); METAMYELOCYTES 3 % (0-0); MONOCYTES 1 % (0-5); MYELOCYTES 2 % (0-0); NEUTROPHILS 80 % (28-66); PLATELET ESTIMATE DECREASED (NORMAL)
[2022-07-16] MEDS: TOPIRAMATE (TopAMAX) 100 MG TAB PO SCH ×2 (08:31→20:55)
[2022-07-16] MEDS: VENLAFAXINE **XR** 75MG CAPSULE PO SCH (08:31)
[2022-07-16] MEDS: METOPROLOL SUCC (TopROL XL) 100MG *XL* TAB PO SCH (08:32)
[2022-07-16] MEDS: KETOROLAC 30 MG/ML 1ML VIAL IV PRN ×2 (11:06→20:56)
[2022-07-16 14:00] VITALS: BP 140/73
[2022-07-16] MEDS ORDERED: FLUBLOK(EGG FREE)(QUAD)INFLUENZA VACC 0.5ML SYRINGE 18YRS & OLDER IM.IMMUN ONE (14:00)
[2022-07-16 21:15] VITALS: BP 147/84
[2022-07-17] MEDS: CEFTAROLINE FOSAMIL 600 MG in D5W MINI-BAG PLUS 50 ML IV SCH ×3 (00:44→23:21)
[2022-07-17 02:17] VITALS: BP 147/83
[2022-07-17 06:00] VITALS: BP 145/83
[2022-07-17 06:10] LABS: BASO % 0.3 % (0.0-1.0); EOS # 0.1 10^3/uL (0.0-0.5); EOS % 0.9 % (0.0-3.0); HEMOGLOBIN 12.2 g/dl (13.5-17.5); LYMPH # 0.7 10^3/uL (1.5-5.0); LYMPH % 7.9 % (24.0-44.0); MEAN CORPUSCULAR HEMOGLOBIN 30.7 pg (27.0-33.0); MEAN CORPUSCULAR HGB CONC 32.1 g/dl (32.0-36.5); MEAN CORPUSCULAR VOLUME 95.7 fl (80.0-96.0); MONO # 0.6 10^3/uL (0.0-0.8); MONO % 6.2 % (2.0-8.0); NEUTROPHILS # 7.5 10^3/uL (1.5-8.5); NEUTROPHILS % 83.8 % (36.0-66.0); RED BLOOD COUNT 3.97 10^6/uL (4.30-6.10); WHITE BLOOD COUNT 8.9 10^3/uL (4.0-10.0)
[2022-07-17 06:14] LABS: PLATELET COUNT, AUTOMATED 79 10^3/uL (150-450)
[2022-07-17 06:35] LABS: BLOOD UREA NITROGEN 22 MG/DL (9-23); CALCIUM LEVEL 7.9 MG/DL (8.5-10.1); CARBON DIOXIDE LEVEL 23 MMOL/L (20-31); CHLORIDE LEVEL 111 MMOL/L (98-107); CREATININE FOR GFR 1.05 MG/DL (0.70-1.30); GLOMERULAR FILTRATION RATE > 60.0 (>56); GLUCOSE, FASTING 95 MG/DL (60-100); POTASSIUM SERUM 3.4 MMOL/L (3.5-5.1); SODIUM LEVEL 142 MMOL/L (136-145)
[2022-07-17] MEDS ORDERED: POTASSIUM CHLORIDE 10MEQ SR TABLET PO ONE (07:35)
[2022-07-17] MEDS: VENLAFAXINE **XR** 75MG CAPSULE PO SCH (08:12)
[2022-07-17] MEDS: TOPIRAMATE (TopAMAX) 100 MG TAB PO SCH ×2 (08:13→21:35)
[2022-07-17] MEDS: METOPROLOL SUCC (TopROL XL) 100MG *XL* TAB PO SCH (08:15)
[2022-07-17] MEDS: LOSARTAN 50MG TABLET PO SCH ×2 (08:15→21:35)
[2022-07-17] MEDS: KETOROLAC 30 MG/ML 1ML VIAL IV PRN ×2 (12:21→21:37)
[2022-07-17] MEDS: ACETAMINOPHEN 500 MG TAB PO PRN (13:49)
[2022-07-17 14:00] VITALS: BP 134/74
[2022-07-17 20:00] VITALS: BP 136/75
[2022-07-18 06:00] VITALS: BP 136/81
[2022-07-18 06:26] LABS: BASO % 0.5 % (0.0-1.0); EOS # 0.2 10^3/uL (0.0-0.5); EOS % 2.2 % (0.0-3.0); HEMATOCRIT 38.8 % (42.0-52.0); HEMOGLOBIN 12.4 g/dl (13.5-17.5); LYMPH # 0.9 10^3/uL (1.5-5.0); LYMPH % 11.1 % (24.0-44.0); MEAN CORPUSCULAR HEMOGLOBIN 30.9 pg (27.0-33.0); MEAN CORPUSCULAR VOLUME 96.8 fl (80.0-96.0); MONO # 0.8 10^3/uL (0.0-0.8); MONO % 9.3 % (2.0-8.0); NEUTROPHILS # 6.1 10^3/uL (1.5-8.5); NEUTROPHILS % 75.8 % (36.0-66.0); RED BLOOD COUNT 4.01 10^6/uL (4.30-6.10); WHITE BLOOD COUNT 8.1 10^3/uL (4.0-10.0)
[2022-07-18 06:27] LABS: PLATELET COUNT, AUTOMATED 70 10^3/uL (150-450)
[2022-07-18 06:44] LABS: BLOOD UREA NITROGEN 20 MG/DL (9-23); CARBON DIOXIDE LEVEL 24 MMOL/L (20-31); CHLORIDE LEVEL 112 MMOL/L (98-107); CREATININE FOR GFR 1.12 MG/DL (0.70-1.30); GLOMERULAR FILTRATION RATE > 60.0 (>56); GLUCOSE, FASTING 89 MG/DL (60-100); POTASSIUM SERUM 3.9 MMOL/L (3.5-5.1); SODIUM LEVEL 144 MMOL/L (136-145)
[2022-07-18] MEDS: TOPIRAMATE (TopAMAX) 100 MG TAB PO SCH ×2 (08:27→20:19)
[2022-07-18] MEDS: VENLAFAXINE **XR** 75MG CAPSULE PO SCH (08:27)
[2022-07-18] MEDS: LOSARTAN 50MG TABLET PO SCH ×2 (08:28→20:19)
[2022-07-18] MEDS: METOPROLOL SUCC (TopROL XL) 100MG *XL* TAB PO SCH (08:30)
[2022-07-18] MEDS: CEFTAROLINE FOSAMIL 600 MG in D5W MINI-BAG PLUS 50 ML IV SCH (12:13)
[2022-07-18 14:00] VITALS: BP 141/81
[2022-07-18 20:00] VITALS: BP 168/65
[2022-07-18] MEDS: KETOROLAC 30 MG/ML 1ML VIAL IV PRN (20:21)
[2022-07-19] MEDS: CEFTAROLINE FOSAMIL 600 MG in D5W MINI-BAG PLUS 50 ML IV SCH ×2 (00:05→11:56)
[2022-07-19] MEDS: ACETAMINOPHEN 500 MG TAB PO PRN (00:06)
[2022-07-19 06:00] VITALS: BP 146/81
[2022-07-19 06:29] LABS: BASO % 0.6 % (0.0-1.0); EOS # 0.2 10^3/uL (0.0-0.5); EOS % 2.5 % (0.0-3.0); HEMATOCRIT 41.5 % (42.0-52.0); HEMOGLOBIN 13.2 g/dl (13.5-17.5); LYMPH # 0.9 10^3/uL (1.5-5.0); LYMPH % 12.3 % (24.0-44.0); MEAN CORPUSCULAR HEMOGLOBIN 30.9 pg (27.0-33.0); MEAN CORPUSCULAR HGB CONC 31.8 g/dl (32.0-36.5); MEAN CORPUSCULAR VOLUME 97.2 fl (80.0-96.0); MONO # 0.8 10^3/uL (0.0-0.8); MONO % 10.6 % (2.0-8.0); NEUTROPHILS # 5.2 10^3/uL (1.5-8.5); NEUTROPHILS % 71.8 % (36.0-66.0); RED BLOOD COUNT 4.27 10^6/uL (4.30-6.10); WHITE BLOOD COUNT 7.2 10^3/uL (4.0-10.0)
[2022-07-19 06:30] LABS: PLATELET COUNT, AUTOMATED 97 10^3/uL (150-450)
[2022-07-19 06:56] LABS: BLOOD UREA NITROGEN 16 MG/DL (9-23); CALCIUM LEVEL 7.8 MG/DL (8.5-10.1); CARBON DIOXIDE LEVEL 23 MMOL/L (20-31); CHLORIDE LEVEL 114 MMOL/L (98-107); CREATININE FOR GFR 1.02 MG/DL (0.70-1.30); GLOMERULAR FILTRATION RATE > 60.0 (>56); GLUCOSE, FASTING 108 MG/DL (60-100); POTASSIUM SERUM 3.6 MMOL/L (3.5-5.1); SODIUM LEVEL 144 MMOL/L (136-145)
[2022-07-19] MEDS ORDERED: IBUP-1022 PO (07:12)
[2022-07-19] MEDS ORDERED: ACET-683 PO (07:12)
[2022-07-19] MEDS ORDERED: CEFU50TA PO (07:12)
[2022-07-19] MEDS: TOPIRAMATE (TopAMAX) 100 MG TAB PO SCH (08:25)
[2022-07-19] MEDS: LOSARTAN 50MG TABLET PO SCH (08:25)
[2022-07-19 08:26] VITALS: BP 146/81
[2022-07-19] MEDS: VENLAFAXINE **XR** 75MG CAPSULE PO SCH (08:26)
[2022-07-19] MEDS: METOPROLOL SUCC (TopROL XL) 100MG *XL* TAB PO SCH (08:26)
[2022-07-19] MEDS: KETOROLAC 30 MG/ML 1ML VIAL IV PRN (11:57)
[2022-07-19 14:00] VITALS: BP 159/84
== END 2022-07-19 15:48 | disposition home or self-care (01) | DRG 383 ==
LOC: M ED 09:17 → EDBD 09:17 → M ED INP 14:18 → ENRESERV 14:32 → M MSPAV 14:58
PROVIDERS: ADMIT Internal Medicine Nephrology; ATTEND Internal Medicine Nephrology
DX: L03.115 Cellulitis of right lower limb (principal); N17.9 Acute kidney failure, unspecified; D69.6 Thrombocytopenia, unspecified; G40.409 Other generalized epilepsy and epileptic syndromes, not intractable, without status epilepticus; E66.01 Morbid (severe) obesity due to excess calories; G47.33 Obstructive sleep apnea (adult) (pediatric); F41.9 Anxiety disorder, unspecified; F32.A Depression, unspecified; L40.9 Psoriasis, unspecified; R16.1 Splenomegaly, not elsewhere classified; I10 Essential (primary) hypertension; Z87.820 Personal history of traumatic brain injury; Z87.442 Personal history of urinary calculi; Z79.899 Other long term (current) drug therapy; Z68.38 Body mass index [BMI] 38.0-38.9, adult

== ENCOUNTER 2022-07-19 15:56 | Outpatient (CLI) | payer BC ==
[~2022-07-19] VITALS: Ht 182.9 cm; Wt 133.0 kg
[~2022-07-19 15:56] MED LIST changes: +ACET-683 PO; +AUGM0.0534 TOP; +CEFU50TA PO; +IBUP-1022 PO; +LOSA100T45 PO; +METO1TAB33 PO; +RISA150S2 SC; +VENL150C43 PO
[2022-07-19 16:20] VITALS: BP 169/91
[2022-07-19] MEDS ORDERED: DALBAVANCIN 1,500 MG in D5W 250 ML IV ONE (17:00)
[2022-07-19 18:20] VITALS: BP 125/61
== END 2022-07-19 18:20 | disposition home or self-care (01) ==
LOC: M INFU 15:56
PROVIDERS: ATTEND Internal Medicine Nephrology
DX: L03.115 Cellulitis of right lower limb (principal)
CPT/HCPCS: 96365; J0875

== ENCOUNTER 2022-08-26 11:37 | Emergency (ER) | payer BC ==
[~2022-08-26] VITALS: Ht 182.9 cm; Wt 130.9 kg
[2022-08-26 13:04] LABS: BASO % 0.7 % (0.0-1.0); EOS # 0.2 10^3/uL (0.0-0.5); EOS % 3.7 % (0.0-3.0); HEMATOCRIT 39.7 % (42.0-52.0); HEMOGLOBIN 13.4 g/dl (13.5-17.5); LYMPH # 1.2 10^3/uL (1.5-5.0); MEAN CORPUSCULAR HEMOGLOBIN 31.2 pg (27.0-33.0); MEAN CORPUSCULAR HGB CONC 33.8 g/dl (32.0-36.5); MEAN CORPUSCULAR VOLUME 92.3 fl (80.0-96.0); MONO # 0.6 10^3/uL (0.0-0.8); MONO % 10.5 % (2.0-8.0); NEUTROPHILS # 3.9 10^3/uL (1.5-8.5); NEUTROPHILS % 64.4 % (36.0-66.0); PLATELET COUNT, AUTOMATED 120 10^3/uL (150-450)
[2022-08-26 13:12] LABS: ALBUMIN 3.6 G/DL (3.2-5.2); ALKALINE PHOSPHATASE 72 U/L (46-116); ALT/SGPT 22 U/L (7.0-40); AST/SGOT 17 U/L (<34); BILIRUBIN,DIRECT 0.2 MG/DL (<0.4); BILIRUBIN,TOTAL 0.4 MG/DL (0.3-1.2); BLOOD UREA NITROGEN 16 MG/DL (9-23); CALCIUM LEVEL 8.8 MG/DL (8.5-10.1); CARBON DIOXIDE LEVEL 26 MMOL/L (20-31); CHLORIDE LEVEL 110 MMOL/L (98-107); CREATININE FOR GFR 1.19 MG/DL (0.70-1.30); GLOMERULAR FILTRATION RATE > 60.0 (>56); GLUCOSE, FASTING 95 MG/DL (60-100); POTASSIUM SERUM 3.7 MMOL/L (3.5-5.1); SODIUM LEVEL 141 MMOL/L (136-145)
[2022-08-26 13:29] LABS: APPEARANCE, URINE CLEAR (CLEAR); BACTERIA, URINE AUTO NEGATIVE (NEGATIVE); BILIRUBIN, URINE AUTO NEGATIVE (NEGATIVE); BLOOD, URINE BLOOD 1+ (NEGATIVE); COLOR, URINE YELLOW (YELLOW); GLUCOSE, URINE (UA) AUTO NEGATIVE (NEGATIVE); KETONE, URINE AUTO NEGATIVE (NEGATIVE); LEUKOCYTE ESTERASE, URINE AUTO TRACE (NEGATIVE); NITRITE, URINE AUTO NEGATIVE (NEGATIVE); PROTEIN, URINE AUTO NEGATIVE (NEGATIVE); RBC, URINE AUTO 3 /HPF (0-3); SPECIFIC GRAVITY URINE AUTO 1.017 (1.002-1.035); SQUAMOUS EPITHELIAL CELL UR AU 2 /HPF (0-6); UROBILINOGEN, URINE AUTO 0.2 mg/dL (0.0-2.0); WBC, URINE AUTO 2 /HPF (0-3)
[2022-08-26] MEDS ORDERED: DOXYCYCLINE HYCLATE 100MG TABLET PO ONE (14:35)
[2022-08-26] MEDS ORDERED: DOXY-443 PO (14:37)
[2022-08-26] MEDS ORDERED: PRED20TA PO (14:37)
[2022-08-26 14:45] VITALS: BP 175/92
== END 2022-08-26 14:49 | disposition home or self-care (01) ==
LOC: M ED 11:37
DX: R60.9 Edema, unspecified (principal); M25.561 Pain in right knee; M25.461 Effusion, right knee; I10 Essential (primary) hypertension; G47.33 Obstructive sleep apnea (adult) (pediatric); F41.9 Anxiety disorder, unspecified; Z79.899 Other long term (current) drug therapy

== ENCOUNTER → 2023-01-06 | Outpatient (CLI) | payer BC ==
[~2023-01-06] MED LIST changes: +DOXY-443 PO; -LOSA100T45 PO; +LOSA100T46 PO; +PRED20TA PO
== END ==
LOC: M WUC 15:31
PROVIDERS: ATTEND Nurse Practitioner Family
DX: L40.0 Psoriasis vulgaris (principal)

== ENCOUNTER 2023-03-05 15:38 | Emergency (ER) | payer BC ==
[~2023-03-05] VITALS: Ht 182.9 cm; Wt 136.6 kg
[2023-03-05] MEDS ORDERED: NS 1,000 ML IV ONE (17:50)
[2023-03-05 17:53] LABS: BASO # 0.1 10^3/uL (0.0-0.2); BASO % 0.8 % (0.0-1.0); EOS # 0.3 10^3/uL (0.0-0.5); EOS % 4.2 % (0.0-3.0); HEMATOCRIT 41.2 % (42.0-52.0); HEMOGLOBIN 13.9 g/dl (13.5-17.5); LYMPH # 1.2 10^3/uL (1.5-5.0); LYMPH % 18.8 % (24.0-44.0); MEAN CORPUSCULAR HEMOGLOBIN 31.2 pg (27.0-33.0); MEAN CORPUSCULAR HGB CONC 33.7 g/dl (32.0-36.5); MEAN CORPUSCULAR VOLUME 92.4 fl (80.0-96.0); MONO # 0.7 10^3/uL (0.0-0.8); MONO % 10.6 % (2.0-8.0); NEUTROPHILS # 4.2 10^3/uL (1.5-8.5); NEUTROPHILS % 64.5 % (36.0-66.0); PLATELET COUNT, AUTOMATED 108 10^3/uL (150-450); RED BLOOD COUNT 4.46 10^6/uL (4.30-6.10); WHITE BLOOD COUNT 6.5 10^3/uL (4.0-10.0)
[2023-03-05 18:10] LABS: ERYTHROCYTE SEDIMENTATION RATE 7 mm/hr (0-20)
[2023-03-05 18:32] LABS: ALBUMIN 3.7 G/DL (3.2-5.2); BILIRUBIN,DIRECT 0.2 MG/DL (<0.4); BILIRUBIN,TOTAL 0.4 MG/DL (0.3-1.2); TOTAL PROTEIN 6.3 G/DL (5.7-8.2)
[2023-03-05 18:40] LABS: RSV AMPLIFICATION NEGATIVE (NEGATIVE)
[2023-03-05 20:46] VITALS: BP 159/86; TEMP 96.4; O2SAT 99
== END 2023-03-05 21:43 | disposition home or self-care (01) ==
LOC: M ED 15:38
DX: R60.0 Localized edema (principal); E66.9 Obesity, unspecified; I10 Essential (primary) hypertension; F41.9 Anxiety disorder, unspecified; Z79.899 Other long term (current) drug therapy

== ENCOUNTER → 2023-05-06 | Outpatient (REF) | payer BC | LOC: M LAB REF 16:16 | PROVIDERS: ATTEND Internal Medicine | DX: R31.9 Hematuria, unspecified (principal) ==

== ENCOUNTER → 2023-05-10 | Outpatient (REF) | payer BC | LOC: M LAB REF 21:25 | PROVIDERS: ATTEND Physician Assistant | DX: B34.9 Viral infection, unspecified (principal) ==

== ENCOUNTER → 2023-05-20 | Outpatient (REF) | payer BC ==
[2023-05-20 13:02] LABS: CK-MB VALUE MASS 1.7 NG/ML (<3.6)
[2023-05-20 13:03] LABS: MB/CK RELATIVE INDEX 1.25 (< OR =4)
[2023-05-20 13:12] LABS: APPEARANCE, URINE CLEAR (CLEAR); BACTERIA, URINE AUTO 1+ (NEGATIVE); BILIRUBIN, URINE AUTO NEGATIVE (NEGATIVE); BLOOD, URINE BLOOD NEGATIVE (NEGATIVE); COLOR, URINE YELLOW (YELLOW); GLUCOSE, URINE (UA) AUTO NEGATIVE (NEGATIVE); KETONE, URINE AUTO NEGATIVE (NEGATIVE); LEUKOCYTE ESTERASE, URINE AUTO NEGATIVE (NEGATIVE); MUCUS, URINE SMALL (NEGATIVE); NITRITE, URINE AUTO NEGATIVE (NEGATIVE); PROTEIN, URINE AUTO NEGATIVE (NEGATIVE); RBC, URINE AUTO 1 /HPF (0-3); SPECIFIC GRAVITY URINE AUTO 1.015 (1.002-1.035); SQUAMOUS EPITHELIAL CELL UR AU 0 /HPF (0-6); UROBILINOGEN, URINE AUTO 0.2 mg/dL (0.0-2.0); WBC, URINE AUTO 2 /HPF (0-3)
== END ==
LOC: M LAB REF 12:19
PROVIDERS: ATTEND Internal Medicine
DX: R31.9 Hematuria, unspecified (principal); R06.00 Dyspnea, unspecified

== ENCOUNTER → 2023-05-23 | Outpatient (CLI) | payer BC | LOC: M CARPUL 14:50 | PROVIDERS: ATTEND Internal Medicine | DX: R06.00 Dyspnea, unspecified (principal) ==

== ENCOUNTER → 2023-09-12 | Outpatient (CLI) | payer BC ==
[~2023-09-12] MED LIST changes: +DOXY-323 PO; -DOXY-443 PO
== END ==
LOC: M RAD 14:08
PROVIDERS: ATTEND Internal Medicine
DX: I89.0 Lymphedema, not elsewhere classified (principal); L03.115 Cellulitis of right lower limb

== ENCOUNTER → 2023-10-05 | Outpatient (REF) | payer BC | LOC: M LAB REF 16:48 | PROVIDERS: ATTEND Internal Medicine | DX: L03.90 Cellulitis, unspecified (principal) ==

== ENCOUNTER 2023-10-27 12:02 | Day surgery (SDC) | payer BC ==
[~2023-10-27] VITALS: Ht 182.9 cm; Wt 147.0 kg
[~2023-10-27 12:02] MED LIST changes: +ALBU8.5H; +AMLO1TAB24 PO; +ECOT81TA5 PO; +ILUM100S; +MULTTAB61 PO; +NS 1,000 ML IV ONE; +TORS20TA2 PO
[2023-10-27] MEDS ORDERED: ACIT1CAP2 PO (12:46)
[2023-10-27] MEDS ORDERED: propofoL 200 MG/20 ML VIAL As Ordered ONE (13:31)
[2023-10-27 13:59] VITALS: TEMP 98.9
[2023-10-27 14:15] VITALS: BP 139/60; O2SAT 95
== END 2023-10-27 14:22 | disposition home or self-care (01) ==
LOC: M OPP 12:02
PROVIDERS: ATTEND Surgery
DX: Z12.11 Encounter for screening for malignant neoplasm of colon (principal); D12.6 Benign neoplasm of colon, unspecified; K57.30 Diverticulosis of large intestine without perforation or abscess without bleeding; G47.30 Sleep apnea, unspecified; Z99.89 Dependence on other enabling machines and devices; Z79.52 Long term (current) use of systemic steroids; Z79.82 Long term (current) use of aspirin; Z79.899 Other long term (current) drug therapy; Z88.8 Allergy status to other drugs, medicaments and biological substances

== ENCOUNTER 2023-12-02 16:17 | Inpatient (IN) | payer BC ==
[~2023-12-02] VITALS: Ht 182.9 cm; Wt 136.6 kg
[~2023-12-02 16:17] MED LIST changes: +ACIT1CAP2 PO; -ILUM100S; +ILUM100S SC; -NS 1,000 ML IV ONE
[2023-12-02] MEDS: ACETAMINOPHEN 325 MG TAB PO ONE (17:16)
[2023-12-02 17:17] LABS: HEMATOCRIT 46.5 % (42.0-52.0); HEMOGLOBIN 15.4 g/dl (13.5-17.5); MEAN CORPUSCULAR HGB CONC 33.1 g/dl (32.0-36.5); MEAN CORPUSCULAR VOLUME 93.6 fl (80.0-96.0); PLATELET COUNT, AUTOMATED 131 10^3/uL (150-450); RED BLOOD COUNT 4.97 10^6/uL (4.30-6.10); WHITE BLOOD COUNT 13.2 10^3/uL (4.0-10.0)
[2023-12-02] MEDS: PIPERACILLIN/TAZOBACTAM SOD 4.5 GM in D5W MINI-BAG PLUS 50 ML IV ONE (17:17)
[2023-12-02] MEDS: NS IV ONE (17:18)
[2023-12-02 17:21] LABS: AMYLASE 47 U/L (30-118)
[2023-12-02 17:22] LABS: ALKALINE PHOSPHATASE 86 U/L (46-116); ALT/SGPT 23 U/L (7.0-40); AST/SGOT 12 U/L (<34); BILIRUBIN,DIRECT 0.2 MG/DL (<0.4); BILIRUBIN,TOTAL 0.5 MG/DL (0.3-1.2); BLOOD UREA NITROGEN 19 MG/DL (9-23); CALCIUM LEVEL 8.8 MG/DL (8.5-10.1); CARBON DIOXIDE LEVEL 25 MMOL/L (20-31); CHLORIDE LEVEL 108 MMOL/L (98-107); CREATININE FOR GFR 1.28 MG/DL (0.70-1.30); GLOMERULAR FILTRATION RATE > 60.0 (>56); GLUCOSE, FASTING 149 MG/DL (60-100); POTASSIUM SERUM 3.8 MMOL/L (3.5-5.1); SODIUM LEVEL 141 MMOL/L (136-145)
[2023-12-02 17:28] LABS: ABG BASE EXCESS -4.8 (-2.0-2.0); ABG HCO3 18.4 MMOL/L (22.0-26.0); ABG O2 SATURATION 95.8 % (95.0-99.0); ABG PARTIAL PRESSURE CO2 29.8 mmHg (35.0-45.0); ABG PARTIAL PRESSURE O2 77.9 mmHg (75.0-100.0); ABG STANDARD HCO3 20.5 MMOL/L. (22.0-26.0); ABG TOTAL CO2 19.3 MMOL/L (22.0-29.0); ABG pH (ARTERIAL) 7.408 UNITS (7.350-7.450)
[2023-12-02 17:28] LABS: INR 1.11; PARTIAL THROMBOPLASTIN TIME 26.3 SECONDS (24.8-34.2); PROTHROMBIN TIME 13.9 SECONDS (12.5-14.5)
[2023-12-02 17:46] LABS: ATYPICAL LYMPH 5 % (0-5); EOSINOPHILS 1 % (0-3); LYMPHOCYTES 5 % (16-44); MONOCYTES 2 % (0-5); NEUTROPHILS 80 % (28-66)
[2023-12-02 17:48] LABS: PLATELET ESTIMATE NORMAL (NORMAL)
[2023-12-02 18:04] LABS: ERYTHROCYTE SEDIMENTATION RATE 9 mm/hr (0-20)
[2023-12-02 18:19] LABS: APPEARANCE, URINE CLEAR (CLEAR); BACTERIA, URINE AUTO NEGATIVE (NEGATIVE); BILIRUBIN, URINE AUTO NEGATIVE (NEGATIVE); BLOOD, URINE BLOOD 1+ (NEGATIVE); COLOR, URINE YELLOW (YELLOW); GLUCOSE, URINE (UA) AUTO NEGATIVE (NEGATIVE); KETONE, URINE AUTO NEGATIVE (NEGATIVE); LEUKOCYTE ESTERASE, URINE AUTO NEGATIVE (NEGATIVE); MUCUS, URINE SMALL (NEGATIVE); NITRITE, URINE AUTO NEGATIVE (NEGATIVE); PROTEIN, URINE AUTO NEGATIVE (NEGATIVE); RBC, URINE AUTO 1 /HPF (0-3); SPECIFIC GRAVITY URINE AUTO 1.015 (1.002-1.035); SQUAMOUS EPITHELIAL CELL UR AU 0 /HPF (0-6); UROBILINOGEN, URINE AUTO 0.2 mg/dL (0.0-2.0); WBC, URINE AUTO 0 /HPF (0-3)
[2023-12-02] MEDS ORDERED: ISOVUE-370 76% 100ML VIAL As Ordered ONE (18:26)
[2023-12-02] MEDS ORDERED: ASPI81CH33 PO (22:07)
[2023-12-02] MEDS ORDERED: SPIR-10 PO (22:07)
[2023-12-02] MEDS ORDERED: HOME MED LIST COMPLETE! XX SCH (22:10)
[2023-12-02] MEDS ORDERED: NOREPINEPHRINE 4MG IN D5 250ML 4 MG in IV 1 EA IV SCH (22:45)
[2023-12-02] MEDS ORDERED: MOM 30ML SUSPENSION UDC PO PRN (22:45)
[2023-12-02] MEDS: CLINDAMYCIN 900 MG in IV 1 EA IV ONE (23:00)
[2023-12-03] VITALS (14 sets, daily range): BP systolic 110–182; BP diastolic 59–97; TEMP 97.8–102.7; O2SAT 94–100
[2023-12-03] MEDS: UNRESOLVED PATIENT OWN MED ORDER XX SCH (00:01)
[2023-12-03] MEDS: TOPIRAMATE (TopAMAX) 100 MG TAB PO SCH (00:03)
[2023-12-03] MEDS: NS 1,000 ML IV ONE ×2 (00:04→07:57)
[2023-12-03] MEDS: PIPERACILLIN/TAZOBACTAM SOD 4.5 GM in D5W MINI-BAG PLUS 50 ML IV SCH (00:04)
[2023-12-03] MEDS ORDERED: ceFAZolin SOD 2 GM in IV 1 EA IV SCH (01:00)
[2023-12-03] MEDS: ONDANSETRON 4MG 2ML VIAL IV SCH (04:37)
[2023-12-03 05:11] LABS: MEAN CORPUSCULAR HEMOGLOBIN 31.5 pg (27.0-33.0); MEAN CORPUSCULAR HGB CONC 33.3 g/dl (32.0-36.5); MEAN CORPUSCULAR VOLUME 94.6 fl (80.0-96.0); PLATELET COUNT, AUTOMATED 126 10^3/uL (150-450); RED BLOOD COUNT 4.44 10^6/uL (4.30-6.10); WHITE BLOOD COUNT 22.9 10^3/uL (4.0-10.0)
[2023-12-03] MEDS: ACETAMINOPHEN *IV* 1,000 MG in IV 1 EA IV ONE (05:32)
[2023-12-03 05:48] LABS: ALBUMIN 3.3 G/DL (3.2-5.2); BILIRUBIN,TOTAL 0.9 MG/DL (0.3-1.2); CREATININE FOR GFR 1.35 MG/DL (0.70-1.30); GLOMERULAR FILTRATION RATE 58.6 (>56); MAGNESIUM LEVEL 1.4 MG/DL (1.8-2.4); POTASSIUM SERUM 4.1 MMOL/L (3.5-5.1)
[2023-12-03] MEDS: MAG SULF 1GM/100ML (MAG RUN) 1 GM in IV 1 EA IV ONE (06:36)
[2023-12-03] MEDS: ASPIRIN 81MG CHEW TABLET PO SCH (08:59)
[2023-12-03] MEDS: BISACODYL 10MG SUPP PR SCH (09:00)
[2023-12-03] MEDS ORDERED: ACITRETIN 25 MG PO SCH (09:00)
[2023-12-03] MEDS: HEPARIN SOD (PORCINE) 5000UNITS/ML 1ML VIAL/SYRINGE SC SCH (09:00)
[2023-12-03] MEDS ORDERED: VANCOMYCIN HCL 1,000 MG, VIAL MATE ADAPTER 1 EACH in D5W 250 ML IV SCH (09:20)
[2023-12-03] MEDS: VENLAFAXINE **XR** 75MG CAPSULE PO SCH (09:28)
[2023-12-03] MEDS: CLINDAMYCIN 900 MG in IV 1 EA IV SCH (09:57)
[2023-12-03] MEDS: SODIUM BICARBONATE 100 MEQ in D5W 1,000 ML IV SCH (09:57)
[2023-12-03] MEDS: VANCOMYCIN HCL 1,000 MG, VIAL MATE ADAPTER 1 EACH in D5W 250 ML IV ONE ×2 (11:05→12:17)
[2023-12-03] MEDS: METOPROLOL TART 25 MG TABLET PO SCH (13:58)
[2023-12-03 16:46] LABS: BLOOD UREA NITROGEN 20 MG/DL (9-23); CALCIUM LEVEL 7.5 MG/DL (8.5-10.1); CARBON DIOXIDE LEVEL 22 MMOL/L (20-31); CHLORIDE LEVEL 111 MMOL/L (98-107); CREATININE FOR GFR 1.16 MG/DL (0.70-1.30); GLOMERULAR FILTRATION RATE > 60.0 (>56); GLUCOSE, FASTING 152 MG/DL (60-100); POTASSIUM SERUM 3.6 MMOL/L (3.5-5.1); SODIUM LEVEL 139 MMOL/L (136-145)
[2023-12-03] MEDS: cefTRIAXone SOD 2 GM in D5W MINI-BAG PLUS 50 ML IV SCH (19:51)
[2023-12-03] MEDS: VANCOMYCIN HCL 1,000 MG, VIAL MATE ADAPTER 1 EACH in D5W 250 ML IV SCH (20:48)
[2023-12-04] VITALS (8 sets, daily range): BP systolic 116–143; BP diastolic 59–80; TEMP 97.1–97.7; O2SAT 93–96
[2023-12-04] MEDS: ACETAMINOPHEN TAB 650MG DOSE (2X325MG) PO PRN (05:52)
[2023-12-04 07:39] LABS: HEMOGLOBIN 12.3 g/dl (13.5-17.5); MEAN CORPUSCULAR HEMOGLOBIN 30.9 pg (27.0-33.0); MEAN CORPUSCULAR HGB CONC 33.2 g/dl (32.0-36.5); RED BLOOD COUNT 3.98 10^6/uL (4.30-6.10); WHITE BLOOD COUNT 13.6 10^3/uL (4.0-10.0)
[2023-12-04 07:56] LABS: ERYTHROCYTE SEDIMENTATION RATE 35 mm/hr (0-20)
[2023-12-04 07:58] LABS: PLATELET COUNT, AUTOMATED 88 10^3/uL (150-450)
[2023-12-04 08:03] LABS: ATYPICAL LYMPH 1 % (0-5); LYMPHOCYTES 1 % (16-44); METAMYELOCYTES 1 % (0-0); MONOCYTES 2 % (0-5); NEUTROPHILS 78 % (28-66)
[2023-12-04 08:04] LABS: PLATELET CLUMPS SMALL AMT; PLATELET ESTIMATE DECREASED (NORMAL)
[2023-12-04 08:13] LABS: ALKALINE PHOSPHATASE 46 U/L (46-116); ALT/SGPT 19 U/L (7.0-40); AST/SGOT 15 U/L (<34); BILIRUBIN,TOTAL 0.6 MG/DL (0.3-1.2); BLOOD UREA NITROGEN 17 MG/DL (9-23); CALCIUM LEVEL 8.1 MG/DL (8.5-10.1); CARBON DIOXIDE LEVEL 24 MMOL/L (20-31); CHLORIDE LEVEL 108 MMOL/L (98-107); CREATININE FOR GFR 0.96 MG/DL (0.70-1.30); GLOMERULAR FILTRATION RATE > 60.0 (>56); GLUCOSE, FASTING 160 MG/DL (60-100); POTASSIUM SERUM 3.6 MMOL/L (3.5-5.1); SODIUM LEVEL 138 MMOL/L (136-145); TOTAL PROTEIN 5.7 G/DL (5.7-8.2)
[2023-12-04 08:19] LABS: PROCALCITONIN 21.36 ng/ml
[2023-12-04] MEDS: VANCOMYCIN HCL 1,000 MG, VIAL MATE ADAPTER 1 EACH in D5W 250 ML IV SCH (10:20)
[2023-12-04] MEDS: FUROSEMIDE 40MG/4ML VIAL IV ONE (16:36)
[2023-12-04] MEDS ORDERED: ACETAMINOPHEN TAB 650MG DOSE (2X325MG) PO ONE (20:35)
[2023-12-04] MEDS: METOPROLOL TART 25 MG TABLET PO SCH (20:36)
[2023-12-04] MEDS: NORCO, ANEXSIA 5/325MG TABLET (HYDROcodone/ACETAMINOPHEN) PO ONE (20:57)
[2023-12-04 22:29] LABS: BLOOD UREA NITROGEN 17 MG/DL (9-23); CALCIUM LEVEL 8.1 MG/DL (8.5-10.1); CARBON DIOXIDE LEVEL 28 MMOL/L (20-31); CHLORIDE LEVEL 107 MMOL/L (98-107); CREATININE FOR GFR 1.06 MG/DL (0.70-1.30); GLOMERULAR FILTRATION RATE > 60.0 (>56); GLUCOSE, FASTING 145 MG/DL (60-100); POTASSIUM SERUM 3.6 MMOL/L (3.5-5.1); SODIUM LEVEL 139 MMOL/L (136-145)
[2023-12-04] MEDS: FUROSEMIDE 40MG/4ML VIAL IV SCH (22:58)
[2023-12-05 04:00] VITALS: BP 124/74; TEMP 97; O2SAT 95
[2023-12-05 07:05] LABS: HEMATOCRIT 42.7 % (42.0-52.0); HEMOGLOBIN 13.9 g/dl (13.5-17.5); MEAN CORPUSCULAR HEMOGLOBIN 30.8 pg (27.0-33.0); MEAN CORPUSCULAR HGB CONC 32.6 g/dl (32.0-36.5); MEAN CORPUSCULAR VOLUME 94.5 fl (80.0-96.0); RED BLOOD COUNT 4.52 10^6/uL (4.30-6.10); WHITE BLOOD COUNT 10.3 10^3/uL (4.0-10.0)
[2023-12-05 07:07] LABS: PLATELET COUNT, AUTOMATED 87 10^3/uL (150-450)
[2023-12-05 07:23] LABS: BLOOD UREA NITROGEN 19 MG/DL (9-23); CALCIUM LEVEL 8.4 MG/DL (8.5-10.1); CARBON DIOXIDE LEVEL 29 MMOL/L (20-31); CHLORIDE LEVEL 107 MMOL/L (98-107); CREATININE FOR GFR 1.14 MG/DL (0.70-1.30); GLOMERULAR FILTRATION RATE > 60.0 (>56); GLUCOSE, FASTING 132 MG/DL (60-100); POTASSIUM SERUM 3.4 MMOL/L (3.5-5.1); SODIUM LEVEL 142 MMOL/L (136-145)
[2023-12-05 08:01] LABS: ATYPICAL LYMPH 2 % (0-5); LYMPHOCYTES 5 % (16-44); MONOCYTES 5 % (0-5); NEUTROPHILS 74 % (28-66)
[2023-12-05 08:03] LABS: PLATELET ESTIMATE DECREASED (NORMAL)
[2023-12-05] MEDS ORDERED: LIDOCAINE 1% MDV 20ML VIAL As Ordered ONE (11:35)
[2023-12-05 12:00] VITALS: BP 122/68; TEMP 97; O2SAT 95
[2023-12-05] MEDS ORDERED: CEPACOL LOZENGE PO PRN (12:20)
[2023-12-05] MEDS: CEPACOL LOZENGE PO ONE (12:53)
[2023-12-05] MEDS: CHLORASEPTIC SPRAY MT SCH (13:00)
[2023-12-05] MEDS ORDERED: CHLORASEPTIC SPRAY MT ONE (14:00)
[2023-12-05] MEDS: metOLazone 5 MG TAB PO ONE (16:50)
[2023-12-05] MEDS: FUROSEMIDE 40MG/4ML VIAL IV SCH (17:44)
[2023-12-05] MEDS: SODIUM CHLORIDE 0.9% INJ 10 ML SYR IV SCH (17:44)
[2023-12-05 19:55] VITALS: BP 142/81; TEMP 97.3; O2SAT 97
[2023-12-05 22:25] VITALS: BP 133/79
[2023-12-05] MEDS: SODIUM CHLORIDE 0.9% INJ 10 ML SYR IV PRN (22:35)
[2023-12-06 04:15] VITALS: BP 137/82; TEMP 97.2; O2SAT 96
[2023-12-06 06:27] LABS: BASO # 0.1 10^3/uL (0.0-0.2); BASO % 0.6 % (0.0-1.0); EOS # 0.1 10^3/uL (0.0-0.5); EOS % 0.8 % (0.0-3.0); HEMATOCRIT 43.7 % (42.0-52.0); HEMOGLOBIN 14.3 g/dl (13.5-17.5); LYMPH # 0.8 10^3/uL (1.5-5.0); LYMPH % 8.3 % (24.0-44.0); MEAN CORPUSCULAR HEMOGLOBIN 30.8 pg (27.0-33.0); MEAN CORPUSCULAR HGB CONC 32.7 g/dl (32.0-36.5); MONO # 0.9 10^3/uL (0.0-0.8); NEUTROPHILS # 7.4 10^3/uL (1.5-8.5); NEUTROPHILS % 78.2 % (36.0-66.0); RED BLOOD COUNT 4.65 10^6/uL (4.30-6.10); WHITE BLOOD COUNT 9.5 10^3/uL (4.0-10.0)
[2023-12-06 06:29] LABS: PLATELET COUNT, AUTOMATED 89 10^3/uL (150-450)
[2023-12-06 06:53] LABS: CALCIUM LEVEL 9.1 MG/DL (8.5-10.1); CREATININE FOR GFR 1.37 MG/DL (0.70-1.30); GLOMERULAR FILTRATION RATE 57.6 (>56); POTASSIUM SERUM 2.6 MMOL/L (3.5-5.1)
[2023-12-06] MEDS: POTASSIUM CHLORIDE 10MEQ SR TABLET PO ONE ×2 (07:27→17:11)
[2023-12-06] MEDS: KCL 10MEQ/100ML SWI (KRUN) 10 MEQ in IV 1 EA IV SCH ×2 (08:45→17:12)
[2023-12-06 12:00] VITALS: BP 138/89; TEMP 97.5; O2SAT 94
[2023-12-06] MEDS: cefTRIAXone SOD 2 GM in D5W MINI-BAG PLUS 50 ML IV SCH (13:01)
[2023-12-06 15:50] LABS: BLOOD UREA NITROGEN 27 MG/DL (9-23); CARBON DIOXIDE LEVEL 30 MMOL/L (20-31); CHLORIDE LEVEL 96 MMOL/L (98-107); CREATININE FOR GFR 1.29 MG/DL (0.70-1.30); GLOMERULAR FILTRATION RATE > 60.0 (>56); GLUCOSE, FASTING 168 MG/DL (60-100); MAGNESIUM LEVEL 2.1 MG/DL (1.8-2.4); POTASSIUM SERUM 2.7 MMOL/L (3.5-5.1); SODIUM LEVEL 136 MMOL/L (136-145)
[2023-12-06 20:48] VITALS: BP 130/76; TEMP 97.3; O2SAT 95
[2023-12-06 22:39] LABS: BLOOD UREA NITROGEN 27 MG/DL (9-23); CALCIUM LEVEL 8.9 MG/DL (8.5-10.1); CARBON DIOXIDE LEVEL 29 MMOL/L (20-31); CHLORIDE LEVEL 98 MMOL/L (98-107); CREATININE FOR GFR 1.23 MG/DL (0.70-1.30); GLOMERULAR FILTRATION RATE > 60.0 (>56); GLUCOSE, FASTING 167 MG/DL (60-100); POTASSIUM SERUM 3.1 MMOL/L (3.5-5.1); SODIUM LEVEL 136 MMOL/L (136-145)
[2023-12-07 02:41] LABS: BLOOD UREA NITROGEN 26 MG/DL (9-23); CALCIUM LEVEL 8.8 MG/DL (8.5-10.1); CARBON DIOXIDE LEVEL 29 MMOL/L (20-31); CHLORIDE LEVEL 99 MMOL/L (98-107); CREATININE FOR GFR 1.18 MG/DL (0.70-1.30); GLOMERULAR FILTRATION RATE > 60.0 (>56); GLUCOSE, FASTING 140 MG/DL (60-100); POTASSIUM SERUM 3.2 MMOL/L (3.5-5.1); SODIUM LEVEL 136 MMOL/L (136-145)
[2023-12-07 03:46] VITALS: BP 142/84; TEMP 97.5; O2SAT 95
[2023-12-07] MEDS: KCL 10MEQ/100ML SWI (KRUN) 10 MEQ in IV 1 EA IV SCH (04:01)
[2023-12-07 06:43] LABS: BASO # 0.1 10^3/uL (0.0-0.2); EOS # 0.1 10^3/uL (0.0-0.5); EOS % 1.3 % (0.0-3.0); HEMATOCRIT 44.1 % (42.0-52.0); HEMOGLOBIN 14.5 g/dl (13.5-17.5); LYMPH # 1.1 10^3/uL (1.5-5.0); LYMPH % 11.2 % (24.0-44.0); MEAN CORPUSCULAR HEMOGLOBIN 30.1 pg (27.0-33.0); MEAN CORPUSCULAR HGB CONC 32.9 g/dl (32.0-36.5); MEAN CORPUSCULAR VOLUME 91.7 fl (80.0-96.0); MONO % 9.8 % (2.0-8.0); NEUTROPHILS % 70.6 % (36.0-66.0); PLATELET COUNT, AUTOMATED 117 10^3/uL (150-450); RED BLOOD COUNT 4.81 10^6/uL (4.30-6.10); WHITE BLOOD COUNT 9.8 10^3/uL (4.0-10.0)
[2023-12-07 06:56] LABS: BLOOD UREA NITROGEN 24 MG/DL (9-23); CALCIUM LEVEL 8.9 MG/DL (8.5-10.1); CARBON DIOXIDE LEVEL 30 MMOL/L (20-31); CHLORIDE LEVEL 100 MMOL/L (98-107); CREATININE FOR GFR 1.14 MG/DL (0.70-1.30); GLOMERULAR FILTRATION RATE > 60.0 (>56); GLUCOSE, FASTING 133 MG/DL (60-100); MAGNESIUM LEVEL 2.2 MG/DL (1.8-2.4); POTASSIUM SERUM 3.2 MMOL/L (3.5-5.1); SODIUM LEVEL 138 MMOL/L (136-145)
[2023-12-07] MEDS: POTASSIUM CHLORIDE 10MEQ SR TABLET PO ONE (08:24)
[2023-12-07 08:28] VITALS: BP 128/69
[2023-12-07] MEDS: UNRESOLVED PATIENT OWN MED ORDER XX SCH (09:00)
[2023-12-07 09:33] LABS: CLOSTRIDIUM DIFFICILE PCR NEGATIVE (NEGATIVE)
[2023-12-07 12:00] VITALS: BP 147/81; TEMP 97.2; O2SAT 96
[2023-12-07] MEDS ORDERED: POTA-298 PO (14:06)
== END 2023-12-07 17:12 | disposition home health service (06) | DRG 720 ==
LOC: M ED 16:17 → M ED INP 22:42 → M ICU 12-03 00:22 → M MSPAV 12-04 18:26
PROVIDERS: ADMIT Internal Medicine; ATTEND Preventive Medicine Undersea and Hyperbaric Medicine
PROC: B246ZZZ Ultrasonography of Right and Left Heart (ICD-10-PCS; principal; 2023-12-04)
PROC: 02HV33Z Insertion of Infusion Device into Superior Vena Cava, Percutaneous Approach (ICD-10-PCS; 2023-12-05)
DX: A40.0 Sepsis due to streptococcus, group A (principal); R65.21 Severe sepsis with septic shock; E87.20 Acidosis, unspecified; N17.9 Acute kidney failure, unspecified; D69.6 Thrombocytopenia, unspecified; G40.909 Epilepsy, unspecified, not intractable, without status epilepticus; G47.33 Obstructive sleep apnea (adult) (pediatric); F41.9 Anxiety disorder, unspecified; F32.A Depression, unspecified; L40.9 Psoriasis, unspecified; J02.0 Streptococcal pharyngitis; I10 Essential (primary) hypertension; R09.02 Hypoxemia; N43.3 Hydrocele, unspecified; E87.6 Hypokalemia; Z87.442 Personal history of urinary calculi; Z79.82 Long term (current) use of aspirin; Z79.899 Other long term (current) drug therapy; Z88.8 Allergy status to other drugs, medicaments and biological substances

== ENCOUNTER → 2023-12-13 | Outpatient (REF) | payer BC ==
[~2023-12-13] MED LIST changes: +ASPI81CH33 PO; +POTA-298 PO; +SPIR-10 PO
== END ==
LOC: M LAB REF 16:18
PROVIDERS: ATTEND Internal Medicine
DX: R60.0 Localized edema (principal)

== ENCOUNTER → 2023-12-19 | Outpatient (REF) | payer BC | LOC: M LAB REF 17:17 | PROVIDERS: ATTEND Internal Medicine | DX: A40.0 Sepsis due to streptococcus, group A (principal); R60.0 Localized edema ==

== ENCOUNTER 2023-12-26 14:28 | Emergency (ER) | payer BC ==
[~2023-12-26] VITALS: Ht 182.9 cm; Wt 129.5 kg
[2023-12-26 15:29] LABS: BASO # 0.1 10^3/uL (0.0-0.2); BASO % 0.9 % (0.0-1.0); EOS # 0.2 10^3/uL (0.0-0.5); EOS % 2.9 % (0.0-3.0); HEMATOCRIT 39.9 % (42.0-52.0); HEMOGLOBIN 13.3 g/dl (13.5-17.5); LYMPH % 16.9 % (24.0-44.0); MEAN CORPUSCULAR HEMOGLOBIN 30.9 pg (27.0-33.0); MEAN CORPUSCULAR HGB CONC 33.3 g/dl (32.0-36.5); MEAN CORPUSCULAR VOLUME 92.6 fl (80.0-96.0); MONO # 0.7 10^3/uL (0.0-0.8); MONO % 11.9 % (2.0-8.0); NEUTROPHILS # 3.9 10^3/uL (1.5-8.5); NEUTROPHILS % 66.2 % (36.0-66.0); PLATELET COUNT, AUTOMATED 109 10^3/uL (150-450); RED BLOOD COUNT 4.31 10^6/uL (4.30-6.10); WHITE BLOOD COUNT 5.9 10^3/uL (4.0-10.0)
[2023-12-26 15:42] LABS: INR 1.08; PARTIAL THROMBOPLASTIN TIME 26.8 SECONDS (24.8-34.2); PROTHROMBIN TIME 13.7 SECONDS (12.5-14.5)
[2023-12-26 15:54] LABS: CK-MB VALUE MASS < 1.0 NG/ML (<3.6)
[2023-12-26 15:56] LABS: ALBUMIN 3.6 G/DL (3.2-5.2); ALKALINE PHOSPHATASE 75 U/L (46-116); ALT/SGPT 27 U/L (7.0-40); AST/SGOT 12 U/L (<34); BILIRUBIN,DIRECT 0.2 MG/DL (<0.4); BILIRUBIN,TOTAL 0.5 MG/DL (0.3-1.2); BLOOD UREA NITROGEN 14 MG/DL (9-23); CALCIUM LEVEL 8.7 MG/DL (8.5-10.1); CARBON DIOXIDE LEVEL 25 MMOL/L (20-31); CHLORIDE LEVEL 111 MMOL/L (98-107); CREATININE FOR GFR 1.18 MG/DL (0.70-1.30); GLOMERULAR FILTRATION RATE > 60.0 (>56); GLUCOSE, FASTING 85 MG/DL (60-100); POTASSIUM SERUM 4.1 MMOL/L (3.5-5.1); SODIUM LEVEL 142 MMOL/L (136-145); TOTAL PROTEIN 6.9 G/DL (5.7-8.2)
[2023-12-26 15:58] LABS: FREE T4 0.99 NG/DL (0.89-1.76); THYROID STIMULATING HORMONE 4.436 uIU/ML (0.55-4.78)
[2023-12-26 15:59] LABS: CPK CREATINE PHOSPHOKINASE 54 U/L (46-171); MB/CK RELATIVE INDEX 1.85 (< OR =4)
[2023-12-26] MEDS: METOCLOPRAMIDE INJ 10MG/2ML VIAL IV ONE (16:22)
[2023-12-26 16:57] LABS: CK-MB VALUE MASS < 1.0 NG/ML (<3.6)
[2023-12-26 16:59] LABS: CPK CREATINE PHOSPHOKINASE 46 U/L (46-171); MB/CK RELATIVE INDEX 2.17 (< OR =4)
[2023-12-26 17:00] VITALS: O2SAT 96
[2023-12-26 18:18] VITALS: BP 147/69; TEMP 97.2
== END 2023-12-26 18:20 | disposition home or self-care (01) ==
LOC: EDBD 14:28 → M ED 14:28
DX: I10 Essential (primary) hypertension (principal); R51.9 Headache, unspecified; I45.81 Long QT syndrome; F41.9 Anxiety disorder, unspecified; F32.A Depression, unspecified; Z88.8 Allergy status to other drugs, medicaments and biological substances; Z79.1 Long term (current) use of non-steroidal anti-inflammatories (NSAID); Z79.899 Other long term (current) drug therapy
CPT/HCPCS: 36415; 70450; 71046; 80048; 80076; 82550; 82553; 84439; 84443; 84484; 85025; 85610; 85730; 93005; 93041; 94760; 96374; 99285; J2765

== ENCOUNTER → 2024-02-17 | Outpatient (REF) | payer BC ==
[~2024-02-17] MED LIST changes: -DOXY-323 PO; +DOXY-441 PO
[2024-02-17 14:24] LABS: PERCENT SATURATION 28.5 % (19.7-50.0)
[2024-02-17 14:27] LABS: FERRITIN 147.2 NG/ML (10.5-307.3)
[2024-02-17 15:00] LABS: HEPATITIS C VIRUS ABY INDEX 0.03 INDEX (<0.8)
== END ==
LOC: M LAB REF 12:53
PROVIDERS: ATTEND Internal Medicine
DX: R94.5 Abnormal results of liver function studies (principal); D64.9 Anemia, unspecified; G31.84 Mild cognitive impairment of uncertain or unknown etiology; D69.6 Thrombocytopenia, unspecified

== ENCOUNTER 2024-04-20 15:31 | Emergency (ER) | payer BC ==
[~2024-04-20] VITALS: Ht 182.9 cm; Wt 147.9 kg
[2024-04-20] MEDS ORDERED: SPIR-10 (15:44)
[2024-04-20 17:43] LABS: BASO # 0.1 10^3/uL (0.0-0.2); BASO % 0.7 % (0.0-1.0); EOS # 0.3 10^3/uL (0.0-0.5); EOS % 3.2 % (0.0-3.0); HEMATOCRIT 42.4 % (42.0-52.0); HEMOGLOBIN 14.4 g/dl (13.5-17.5); LYMPH # 1.4 10^3/uL (1.5-5.0); LYMPH % 14.5 % (24.0-44.0); MEAN CORPUSCULAR HEMOGLOBIN 32.3 pg (27.0-33.0); MEAN CORPUSCULAR VOLUME 95.1 fl (80.0-96.0); MONO % 10.2 % (2.0-8.0); NEUTROPHILS # 6.6 10^3/uL (1.5-8.5); NEUTROPHILS % 70.1 % (36.0-66.0); PLATELET COUNT, AUTOMATED 123 10^3/uL (150-450); RED BLOOD COUNT 4.46 10^6/uL (4.30-6.10); WHITE BLOOD COUNT 9.4 10^3/uL (4.0-10.0)
[2024-04-20 18:01] LABS: URIC ACID 5.1 MG/DL (3.7-9.2)
[2024-04-20 18:04] LABS: ALBUMIN 3.6 G/DL (3.2-5.2); BILIRUBIN,DIRECT 0.2 MG/DL (<0.4); BILIRUBIN,TOTAL 0.5 MG/DL (0.3-1.2); TOTAL PROTEIN 7.2 G/DL (5.7-8.2)
[2024-04-20] MEDS ORDERED: CEPH500C PO (20:10)
[2024-04-20] MEDS: CEPHALEXIN 500 MG CAP PO ONE (20:32)
[2024-04-20 20:57] VITALS: BP 163/94; TEMP 98.6
[2024-04-20 21:01] VITALS: O2SAT 95
== END 2024-04-20 21:00 | disposition home or self-care (01) ==
LOC: M ED 15:31
DX: L03.032 Cellulitis of left toe (principal); B35.1 Tinea unguium; I50.22 Chronic systolic (congestive) heart failure; I11.0 Hypertensive heart disease with heart failure; G40.909 Epilepsy, unspecified, not intractable, without status epilepticus; Z87.820 Personal history of traumatic brain injury; Z88.8 Allergy status to other drugs, medicaments and biological substances; Z79.1 Long term (current) use of non-steroidal anti-inflammatories (NSAID); Z79.2 Long term (current) use of antibiotics; Z79.899 Other long term (current) drug therapy

== ENCOUNTER 2024-04-27 11:14 | Emergency (ER) | payer BC ==
[~2024-04-27] VITALS: Ht 182.9 cm; Wt 148.5 kg
[~2024-04-27 11:14] MED LIST changes: +CEPH500C PO; +SPIR-10
[2024-04-27 11:20] VITALS: TEMP 98.6
[2024-04-27 13:19] LABS: ALBUMIN 3.6 G/DL (3.2-5.2); ALKALINE PHOSPHATASE 89 U/L (40-129); ALT/SGPT 32 U/L (7.0-40); AST/SGOT 18 U/L (<34); BILIRUBIN,DIRECT 0.2 MG/DL (<0.4); BILIRUBIN,TOTAL 0.5 MG/DL (0.3-1.2); BLOOD UREA NITROGEN 14 MG/DL (9-23); CALCIUM LEVEL 8.7 MG/DL (8.5-10.1); CARBON DIOXIDE LEVEL 23 MMOL/L (20-31); CHLORIDE LEVEL 109 MMOL/L (98-107); CPK CREATINE PHOSPHOKINASE 138 U/L (46-171); CREATININE FOR GFR 1.01 MG/DL (0.70-1.30); GLOMERULAR FILTRATION RATE > 60.0 (>56); GLUCOSE, FASTING 160 MG/DL (60-100); MB/CK RELATIVE INDEX 0.72 (< OR =4); POTASSIUM SERUM 3.5 MMOL/L (3.5-5.1); SODIUM LEVEL 141 MMOL/L (136-145); TOTAL PROTEIN 7.1 G/DL (5.7-8.2)
[2024-04-27 13:21] LABS: THYROID STIMULATING HORMONE 4.003 uIU/ML (0.55-4.78); THYROXINE (T4) 8.1 UG/DL (4.5-10.9)
[2024-04-27 13:22] LABS: INR 1.01; PROLACTIN 7.18 NG/ML (2.1-17.7); PROTHROMBIN TIME 13.6 SECONDS (12.5-14.5)
[2024-04-27 14:26] LABS: BASO # 0.1 10^3/uL (0.0-0.2); BASO % 0.7 % (0.0-1.0); EOS # 0.3 10^3/uL (0.0-0.5); EOS % 3.2 % (0.0-3.0); HEMATOCRIT 41.7 % (42.0-52.0); HEMOGLOBIN 14.5 g/dl (13.5-17.5); LYMPH # 1.1 10^3/uL (1.5-5.0); LYMPH % 13.7 % (24.0-44.0); MEAN CORPUSCULAR HEMOGLOBIN 32.4 pg (27.0-33.0); MEAN CORPUSCULAR HGB CONC 34.8 g/dl (32.0-36.5); MEAN CORPUSCULAR VOLUME 93.1 fl (80.0-96.0); MONO # 0.8 10^3/uL (0.0-0.8); MONO % 9.2 % (2.0-8.0); NEUTROPHILS # 5.8 10^3/uL (1.5-8.5); NEUTROPHILS % 71.6 % (36.0-66.0); PLATELET COUNT, AUTOMATED 122 10^3/uL (150-450); RED BLOOD COUNT 4.48 10^6/uL (4.30-6.10); WHITE BLOOD COUNT 8.1 10^3/uL (4.0-10.0)
[2024-04-27 15:32] VITALS: BP 178/83; O2SAT 94
== END 2024-04-27 15:33 | disposition home or self-care (01) ==
LOC: M ED 11:14
DX: R53.81 Other malaise (principal); I10 Essential (primary) hypertension; Z88.8 Allergy status to other drugs, medicaments and biological substances; Z79.1 Long term (current) use of non-steroidal anti-inflammatories (NSAID); Z79.899 Other long term (current) drug therapy

== ENCOUNTER → 2024-06-15 | Outpatient (CLI) | payer BC ==
[2024-06-15 08:54] LABS: ALBUMIN 3.7 G/DL (3.2-5.2); ALKALINE PHOSPHATASE 102 U/L (40-129); ALT/SGPT 40 U/L (7.0-40); AST/SGOT 17 U/L (<34); BILIRUBIN,TOTAL 0.5 MG/DL (0.3-1.2); BLOOD UREA NITROGEN 15 MG/DL (9-23); CALCIUM LEVEL 9.1 MG/DL (8.5-10.1); CARBON DIOXIDE LEVEL 26 MMOL/L (20-31); CHLORIDE LEVEL 108 MMOL/L (98-107); CHOLESTEROL LEVEL 121 MG/DL (<200); CHOLESTEROL RISK RATIO 5.84 (<5); CREATININE FOR GFR 1.03 MG/DL (0.70-1.30); GLOMERULAR FILTRATION RATE > 60.0 (>56); GLUCOSE, FASTING 377 MG/DL (60-100); HDL CHOLESTEROL 20.7 MG/DL (>40); NON-HDL-C 100.3 MG/DL; POTASSIUM SERUM 4.6 MMOL/L (3.5-5.1); SODIUM LEVEL 140 MMOL/L (136-145); TOTAL PROTEIN 6.9 G/DL (5.7-8.2); TRIGLYCERIDES LEVEL 572 MG/DL (<150)
== END ==
LOC: M LAB 07:22
PROVIDERS: ATTEND Nurse Practitioner Family
DX: L40.0 Psoriasis vulgaris (principal)

== ENCOUNTER → 2024-09-05 | Outpatient (REF) | payer BC, MEDICAID ==
[~2024-09-05] MED LIST changes: -FLOM0.4C39 PO; +TAMS-18 PO
== END ==
LOC: M LAB REF 18:16
PROVIDERS: ATTEND Surgery
DX: R22.42 Localized swelling, mass and lump, left lower limb (principal); D23.72 Other benign neoplasm of skin of left lower limb, including hip

== ENCOUNTER → 2024-11-15 | Outpatient (REF) | payer OTHER | LOC: M LAB REF 14:39 | PROVIDERS: ATTEND Physician Assistant Medical | DX: L03.115 Cellulitis of right lower limb (principal) ==

== ENCOUNTER → 2024-11-27 | Outpatient (REF) | payer OTHER ==
[2024-11-27 15:04] LABS: C REACTIVE PROTEIN QUANTITATIV < 0.50 MG/DL (<1.0); RHEUMATOID FACTOR QUANT < 3.5 IU/ML (<14)
== END ==
LOC: M LAB REF 13:39
PROVIDERS: ATTEND Nurse Practitioner Family
DX: L03.115 Cellulitis of right lower limb (principal); M06.4 Inflammatory polyarthropathy; M54.50 Low back pain, unspecified

== ENCOUNTER 2024-12-10 14:21 | Inpatient (IN) | payer MEDICAID, OTHER ==
[~2024-12-10] VITALS: Ht 180.3 cm; Wt 147.1 kg
[~2024-12-10 14:21] MED LIST changes: -SPIR-10
[2024-12-10 15:09] LABS: BASO # 0.0 10^3/uL (0.0-0.2); BASO % 0.3 % (0.0-1.0); EOS # 0.1 10^3/uL (0.0-0.5); EOS % 0.5 % (0.0-3.0); LYMPH # 0.5 10^3/uL (1.5-5.0); LYMPH % 3.1 % (24.0-44.0); MONO # 0.8 10^3/uL (0.0-0.8); MONO % 5.2 % (2.0-8.0); NEUTROPHILS # 12.9 10^3/uL (1.5-8.5); NEUTROPHILS % 90.3 % (36.0-66.0); PLATELET COUNT, AUTOMATED 130 10^3/uL (150-450)
[2024-12-10] MEDS: LIDOCAINE 2% 5 ML JELLY UROJET TOP ONE (15:15)
[2024-12-10] MEDS: ACETAMINOPHEN *IV* 1,000 MG in IV 1 EA IV ONE (15:31)
[2024-12-10 15:38] LABS: ALT/SGPT 54.0 U/L (7.0-40); AST/SGOT 30.0 U/L (<34); CALCIUM LEVEL 9.2 MG/DL (8.5-10.1); CARBON DIOXIDE LEVEL 26.0 MMOL/L (20-31); CHLORIDE LEVEL 103.0 MMOL/L (98-107); CREATININE FOR GFR 1.37 MG/DL (0.70-1.30); GLOMERULAR FILTRATION RATE 60.9 (>56); POTASSIUM SERUM 3.7 MMOL/L (3.5-5.1); SODIUM LEVEL 143.0 MMOL/L (136-145)
[2024-12-10] MEDS: NS 0.9% IV STA (15:50)
[2024-12-10] MEDS: [UNRECOGNIZED DRUG - OTHER] IV STA (15:50)
[2024-12-10 16:03] LABS: KETONE, URINE AUTO RFX NEGATIVE (NEGATIVE); NITRITE, URINE AUTO RFX NEGATIVE (NEGATIVE); RBC, URINE AUTO RFX 5 /HPF (0-3); SQUAM EPITHELIAL CELL UR AURFX 1 /HPF (0-6); WBC, URINE AUTO RFX 7 /HPF (0-3)
[2024-12-10 16:38] LABS: LEUKOCYTE ESTERASE UR AUTO RFX TRACE (NEGATIVE)
[2024-12-10] MEDS: VANCOMYCIN HCL 2,000 MG, VIAL MATE ADAPTER 1 EACH in NS 500 ML IV ONE (17:04)
[2024-12-10] MEDS ORDERED: LACO100T PO (17:17)
[2024-12-10] MEDS ORDERED: METF500T13 PO (17:21)
[2024-12-10] MEDS ORDERED: POTA-151 PO (17:21)
[2024-12-10] MEDS ORDERED: MELO7.5T35 PO (17:21)
[2024-12-10] MEDS ORDERED: ROSU5TAB49 PO (17:21)
[2024-12-10] MEDS ORDERED: SEMA2PEN INJ (17:21)
[2024-12-10] MEDS ORDERED: HOME MED LIST COMPLETE! XX SCH (17:25)
[2024-12-10] MEDS: LACOSAMIDE 10 MG/ML 20 ML VIAL IV STA (17:58)
[2024-12-10] MEDS ORDERED: GLUCOSE 4 GM CHEW PO PRN (18:00)
[2024-12-10] MEDS ORDERED: DEXTROSE 50% 50 ML SYRINGE IV PRN (18:00)
[2024-12-10] MEDS ORDERED: GLUCAGON INJ 1 MG VIAL SC PRN (18:00)
[2024-12-10] MEDS ORDERED: PILL CUTTER 1 EACH XX PRN (18:20)
[2024-12-10 18:45] LABS: ABG BASE EXCESS -3.0 (-2.0-2.0); ABG HCO3 21.0 MMOL/L (22.0-26.0); ABG O2 SATURATION 94.3 % (95.0-99.0); ABG PARTIAL PRESSURE CO2 34.7 mmHg (35.0-45.0); ABG PARTIAL PRESSURE O2 69.0 mmHg (75.0-100.0); ABG STANDARD HCO3 21.9 MMOL/L. (22.0-26.0); ABG TOTAL CO2 22.1 MMOL/L (22.0-29.0); ABG pH (ARTERIAL) 7.400 UNITS (7.350-7.450)
[2024-12-10] MEDS ORDERED: PROHANCE 279.3MG/ML 5ML VIAL As Ordered ONE (20:21)
[2024-12-10] MEDS ORDERED: PROHANCE 279.3MG/ML 15ML VIAL As Ordered ONE (20:22)
[2024-12-10] MEDS: INSULIN LISPRO (NovoLOG) PER UNIT SC SCH (21:00)
[2024-12-10] MEDS: cefTRIAXone SOD 2 GM in DEXTROSE 5% (D5W) ADV/MINI-BAG 50 ML IV SCH (21:13)
[2024-12-10] MEDS: HEPARIN SOD 5000 UNITS/ML 1 ML VIAL/SYRINGE SC SCH (21:14)
[2024-12-10] MEDS: TOPIRAMATE 100 MG TAB PO SCH (21:14)
[2024-12-10] MEDS: ACETAMINOPHEN 500 MG TAB PO PRN (22:44)
[2024-12-10 23:15] VITALS: BP 135/58; TEMP 99.5; O2SAT 94
[2024-12-11] VITALS (9 sets, daily range): BP systolic 112–161; BP diastolic 53–81; TEMP 97.5–99.9; O2SAT 94–97
[2024-12-11] MEDS: VANCOMYCIN HCL 1,500 MG, VIAL MATE ADAPTER 1 EACH in NS 500 ML IV SCH (02:31)
[2024-12-11 06:01] LABS: PLATELET COUNT, AUTOMATED 70 10^3/uL (150-450)
[2024-12-11 06:28] LABS: ALT/SGPT 34.0 U/L (7.0-40); AST/SGOT 18.0 U/L (<34); CALCIUM LEVEL 8.1 MG/DL (8.5-10.1); CARBON DIOXIDE LEVEL 21.0 MMOL/L (20-31); CHLORIDE LEVEL 107.0 MMOL/L (98-107); CHOLESTEROL LEVEL 60.0 MG/DL (<200); CHOLESTEROL RISK RATIO 2.62 (<5); CREATININE FOR GFR 1.16 MG/DL (0.70-1.30); GLOMERULAR FILTRATION RATE 74.4 (>56); LDL CHOLESTEROL 9.9 MG/DL (<100); NON-HDL-C 37.1 MG/DL; POTASSIUM SERUM 3.3 MMOL/L (3.5-5.1); SODIUM LEVEL 142.0 MMOL/L (136-145); TRIGLYCERIDES LEVEL 136.0 MG/DL (<150)
[2024-12-11 06:40] LABS: ESTIMATED AVERAGE GLUCOSE 137.0 MG/DL (60-110)
[2024-12-11 07:16] LABS: MAGNESIUM LEVEL 1.8 MG/DL (1.8-2.4)
[2024-12-11] MEDS: POTASSIUM CHLORIDE 10MEQ SR TABLET PO ONE (08:25)
[2024-12-11] MEDS: ASPIRIN 81 MG CHEWABLE TABLET PO SCH (08:26)
[2024-12-11] MEDS: VENLAFAXINE **XR** 75MG CAPSULE PO SCH (08:26)
[2024-12-11] MEDS: ROSUVASTATIN 10 MG TAB PO SCH (08:26)
[2024-12-11] MEDS: METOPROLOL SUCC. 100 MG *XL* TAB PO SCH (08:26)
[2024-12-11] MEDS: amLODIPine 5 MG TAB PO SCH (08:27)
[2024-12-11] MEDS: LACOSAMIDE 10 MG/ML 20 ML VIAL IV SCH (08:27)
[2024-12-11] MEDS: INSULIN LISPRO (NovoLOG) PER UNIT SC SCH (08:28)
[2024-12-11] MEDS: RIVAROXABAN 10MG TAB PO SCH (18:18)
[2024-12-12] VITALS (7 sets, daily range): BP systolic 126–167; BP diastolic 63–82; TEMP 96.9–98; O2SAT 94–97
[2024-12-12 05:50] LABS: BASO # 0.0 10^3/uL (0.0-0.2); BASO % 0.6 % (0.0-1.0); EOS # 0.2 10^3/uL (0.0-0.5); EOS % 3.2 % (0.0-3.0); LYMPH # 1.0 10^3/uL (1.5-5.0); LYMPH % 14.5 % (24.0-44.0); MONO # 0.6 10^3/uL (0.0-0.8); MONO % 9.1 % (2.0-8.0); NEUTROPHILS # 5.0 10^3/uL (1.5-8.5); NEUTROPHILS % 71.7 % (36.0-66.0); PLATELET COUNT, AUTOMATED 101 10^3/uL (150-450)
[2024-12-12 06:14] LABS: CALCIUM LEVEL 8.4 MG/DL (8.5-10.1); CARBON DIOXIDE LEVEL 22.0 MMOL/L (20-31); CHLORIDE LEVEL 111.0 MMOL/L (98-107); CREATININE FOR GFR 1.1 MG/DL (0.70-1.30); GLOMERULAR FILTRATION RATE 79.3 (>56); MAGNESIUM LEVEL 2.1 MG/DL (1.8-2.4); POTASSIUM SERUM 4.0 MMOL/L (3.5-5.1); SODIUM LEVEL 143.0 MMOL/L (136-145)
[2024-12-12] MEDS: PERCOCET 5MG/325MG TAB PO PRN (09:15)
[2024-12-13] VITALS: BP 153/73; TEMP 97.1; O2SAT 96
[2024-12-13 04:00] VITALS: BP 161/89; TEMP 95.8; O2SAT 98
[2024-12-13 09:15] VITALS: BP 136/77; TEMP 97.6; O2SAT 96
[2024-12-13 12:00] VITALS: BP 158/80; TEMP 97.9; O2SAT 96
[2024-12-13 17:45] VITALS: BP 162/92; TEMP 97.9; O2SAT 97
[2024-12-13] MEDS: PERCOCET 5MG/325MG TAB PO PRN (18:55)
[2024-12-13 22:10] VITALS: BP 152/70; TEMP 98.2; O2SAT 96
[2024-12-14 03:49] VITALS: BP 121/71; TEMP 97.9; O2SAT 100
[2024-12-14 06:38] LABS: CALCIUM LEVEL 8.5 MG/DL (8.5-10.1); CARBON DIOXIDE LEVEL 22.0 MMOL/L (20-31); CHLORIDE LEVEL 111.0 MMOL/L (98-107); CREATININE FOR GFR 1.11 MG/DL (0.70-1.30); GLOMERULAR FILTRATION RATE 78.4 (>56); POTASSIUM SERUM 3.8 MMOL/L (3.5-5.1); SODIUM LEVEL 145.0 MMOL/L (136-145)
[2024-12-14 08:11] VITALS: BP 135/75
[2024-12-14 11:45] VITALS: BP 136/76; TEMP 97.9; O2SAT 96
[2024-12-14] MEDS ORDERED: DOXY-440 PO (12:02)
[2024-12-14] MEDS ORDERED: CEFD1CAP9 PO (12:02)
[2024-12-14] MEDS ORDERED: VIMP50TA3 PO (12:02)
[2024-12-14] MEDS ORDERED: OXYC-517 PO (14:44)
== END 2024-12-14 16:14 | disposition home or self-care (01) | DRG 720 ==
LOC: M ED 14:21 → M ED INP 17:58 → M PCU 23:13 → M MSPAV 12-13 17:22 → M PCU 12-13 17:24 → M MSPAV 12-13 17:43
PROVIDERS: ADMIT Internal Medicine; ATTEND Internal Medicine
DX: A41.9 Sepsis, unspecified organism (principal); G93.41 Metabolic encephalopathy; E87.20 Acidosis, unspecified; D69.6 Thrombocytopenia, unspecified; E11.22 Type 2 diabetes mellitus with diabetic chronic kidney disease; I13.0 Hypertensive heart and chronic kidney disease with heart failure and stage 1 through stage 4 chronic kidney disease, or unspecified chronic kidney disease; I50.32 Chronic diastolic (congestive) heart failure; E66.01 Morbid (severe) obesity due to excess calories; N18.9 Chronic kidney disease, unspecified; L40.9 Psoriasis, unspecified; G40.909 Epilepsy, unspecified, not intractable, without status epilepticus; E78.5 Hyperlipidemia, unspecified; F39 Unspecified mood [affective] disorder; L03.115 Cellulitis of right lower limb; R65.20 Severe sepsis without septic shock; Z79.82 Long term (current) use of aspirin; Z79.84 Long term (current) use of oral hypoglycemic drugs; Z79.899 Other long term (current) drug therapy; Z88.8 Allergy status to other drugs, medicaments and biological substances

== ENCOUNTER → 2024-12-21 | Outpatient (CLI) | payer OTHER ==
[~2024-12-21] MED LIST changes: +CEFD1CAP9 PO; +DOXY-440 PO; +LACO100T PO; +MELO7.5T35 PO; +METF500T13 PO; +OXYC-517 PO; +POTA-151 PO; +ROSU5TAB49 PO; +SEMA2PEN INJ; +VIMP50TA3 PO
== END ==
LOC: M RAD 13:03
PROVIDERS: ATTEND Internal Medicine
DX: M54.50 Low back pain, unspecified (principal)

== ENCOUNTER → 2024-12-26 | Outpatient (REF) | LOC: M PLAIMG 08:46 | PROVIDERS: ATTEND Internal Medicine | DX: R52 Pain, unspecified (principal) ==

== ENCOUNTER → 2025-01-02 | Outpatient (REF) | payer OTHER ==
[~2025-01-02] MED LIST changes: -IBUP-1022 PO; +IBUP600T42 PO; -LACO100T PO; +LACO100T11 PO
[2025-01-02 17:10] LABS: INR 0.99
== END ==
LOC: M LAB REF 16:51
PROVIDERS: ATTEND Internal Medicine
DX: K75.81 Nonalcoholic steatohepatitis (NASH) (principal); K74.60 Unspecified cirrhosis of liver

== ENCOUNTER → 2025-01-30 | Outpatient (REF) | payer OTHER | LOC: M LAB REF 14:14 | PROVIDERS: ATTEND Internal Medicine | DX: L03.115 Cellulitis of right lower limb (principal) ==

== ENCOUNTER → 2025-02-13 | Outpatient (CLI) | payer OTHER ==
[~2025-02-13] MED LIST changes: -RHINOAEROS 2 SPRAYS; +RHINOAEROS {null, 2 SPRAYS}; +dexamethasone OD
== END ==
LOC: M SLEEP HO 02-05 11:22
PROVIDERS: ATTEND Physician Assistant
DX: G47.33 Obstructive sleep apnea (adult) (pediatric) (principal)

== ENCOUNTER → 2025-02-20 | Outpatient (REF) | payer OTHER ==
[~2025-02-20] MED LIST changes: +RHINOAEROS 2 SPRAYS; -RHINOAEROS {null, 2 SPRAYS}
== END ==
LOC: M SFHCADAM 09:08
PROVIDERS: ATTEND Nurse Practitioner Family
DX: L40.0 Psoriasis vulgaris (principal)

== ENCOUNTER → 2025-02-25 | Outpatient (REF) | payer OTHER ==
[2025-02-25 17:19] LABS: INR 1.01
== END ==
LOC: M LAB REF 16:55
PROVIDERS: ATTEND Internal Medicine
DX: Z01.818 Encounter for other preprocedural examination (principal)

== ENCOUNTER 2025-03-08 09:19 | Observation (INO) | payer OTHER ==
[~2025-03-08] VITALS: Ht 182.9 cm; Wt 140.6 kg
[2025-03-08] MEDS ORDERED: HEPARIN 1,000 UNITS/ML 10 ML VIAL (FOR RADIOLOGY & DIALYSIS ONLY) IV PRN (09:30)
[2025-03-08] MEDS ORDERED: LR 1,000 ML IV SCH (09:35)
[2025-03-08] MEDS ORDERED: GLYCOPYRROLATE INJ 0.2 MG/ML 2 ML VIAL As Ordered ONE (09:43)
[2025-03-08] MEDS ORDERED: KETOROLAC 30 MG/ML 1 ML VIAL As Ordered ONE (09:43)
[2025-03-08] MEDS ORDERED: LIDOCAINE 2% 100 MG/5 ML SDV (FOR ANES.) As Ordered ONE (09:43)
[2025-03-08] MEDS ORDERED: ACETAMINOPHEN 1000MG/100ML IV BAG As Ordered ONE (09:43)
[2025-03-08] MEDS ORDERED: MIDAZOLAM INJ 2 MG/2 ML VIAL As Ordered ONE (09:44)
[2025-03-08] MEDS ORDERED: ONDANSETRON 4MG/2ML VIAL As Ordered ONE (09:46)
[2025-03-08] MEDS ORDERED: dexAMETHasone 4 MG/ML 1 ML VIAL As Ordered ONE (09:47)
[2025-03-08] MEDS: NS (Normal Saline) 0.9% 1,000 ML IV SCH ×2 (10:30→11:40)
[2025-03-08] MEDS ORDERED: SUCCINYLCHOLINE 100MG/5ML SYRINGE As Ordered ONE (11:27)
[2025-03-08] MEDS: ISOVUE-300 61% 100 ML VIAL IV SCH (11:30)
[2025-03-08] MEDS: LIDOCAINE 1% MDV 20 ML VIAL SC SCH (11:30)
[2025-03-08] MEDS ORDERED: ONDANSETRON 4MG/2ML VIAL IV PRN (12:00)
[2025-03-08] MEDS ORDERED: GLUCOSE 4 GM CHEW PO PRN (14:10)
[2025-03-08] MEDS ORDERED: GLUCAGON INJ 1 MG VIAL SC PRN (14:10)
[2025-03-08] MEDS ORDERED: DEXTROSE 50% 50 ML SYRINGE IV PRN (14:10)
[2025-03-08 15:00] VITALS: BP 156/98; TEMP 96.2; O2SAT 94
[2025-03-08] MEDS ORDERED: PILL CUTTER 1 EACH XX PRN (15:50)
[2025-03-08 16:00] VITALS: BP 156/96; TEMP 96.6; O2SAT 92
[2025-03-08] MEDS ORDERED: LEVOTAB10 PO (16:26)
[2025-03-08] MEDS ORDERED: CYCL5TAB4 PO (16:26)
[2025-03-08] MEDS ORDERED: HOME MED LIST COMPLETE! XX SCH (16:30)
[2025-03-08] MEDS: INSULIN LISPRO (NovoLOG) PER UNIT SC SCH ×2 (18:24→20:26)
[2025-03-08 19:21] VITALS: BP 155/96; TEMP 98.5
[2025-03-08] MEDS: TOPIRAMATE 100 MG TAB PO SCH (21:26)
[2025-03-08] MEDS: MELOXICAM 7.5 MG TAB PO PRN (21:27)
[2025-03-09 00:06] VITALS: BP 154/96; TEMP 98.6; O2SAT 99
[2025-03-09 05:31] VITALS: BP 154/97; TEMP 97.2; O2SAT 97
[2025-03-09] MEDS: LOSARTAN 50 MG TABLET PO SCH (08:42)
[2025-03-09] MEDS: VENLAFAXINE **XR** 75MG CAPSULE PO SCH (08:42)
[2025-03-09] MEDS: ROSUVASTATIN 10 MG TAB PO SCH (08:42)
[2025-03-09] MEDS: POTASSIUM CHLORIDE 10MEQ SR TABLET PO SCH (08:43)
[2025-03-09] MEDS: ASPIRIN 81 MG CHEWABLE TABLET PO SCH (08:43)
[2025-03-09] MEDS: SPIRONOLACTONE 25 MG TAB PO SCH (08:44)
[2025-03-09] MEDS: metFORMIN 500 MG TAB PO SCH (08:44)
[2025-03-09] MEDS: METOPROLOL SUCC. 100 MG *XL* TAB PO SCH (08:45)
[2025-03-09 08:46] VITALS: BP 163/99
[2025-03-09] MEDS: TORSEMIDE 20 MG TAB PO SCH (08:46)
== END 2025-03-09 13:10 | disposition home or self-care (01) ==
LOC: M IRPRO 09:19 → M MS5PR 14:29
PROVIDERS: ADMIT Family Medicine; ATTEND Family Medicine
DX: I87.8 Other specified disorders of veins (principal); Z60.8 Other problems related to social environment; Z74.2 Need for assistance at home and no other household member able to render care; G47.33 Obstructive sleep apnea (adult) (pediatric); L03.115 Cellulitis of right lower limb; E66.01 Morbid (severe) obesity due to excess calories; I11.9 Hypertensive heart disease without heart failure; E78.5 Hyperlipidemia, unspecified; E11.9 Type 2 diabetes mellitus without complications; K76.0 Fatty (change of) liver, not elsewhere classified; G40.909 Epilepsy, unspecified, not intractable, without status epilepticus; F41.9 Anxiety disorder, unspecified; F32.A Depression, unspecified; L40.9 Psoriasis, unspecified; Z90.89 Acquired absence of other organs; Z88.8 Allergy status to other drugs, medicaments and biological substances; Z79.899 Other long term (current) drug therapy
CPT/HCPCS: 36011; 75820; C1894; J0131; J0330; J1100; J1596; J1815; J2250; J2405; J3010; Q9967

== ENCOUNTER → 2025-04-03 | Outpatient (CLI) | payer OTHER ==
[~2025-04-03] MED LIST changes: +CYCL5TAB4 PO; +LEVOTAB10 PO
== END ==
LOC: M RAD 11:45
PROVIDERS: ATTEND Nurse Practitioner Family
DX: M79.604 Pain in right leg (principal)